=== PATIENT | female | born 2005 | race Caucasian/White ===

== ENCOUNTER 2023-02-09 22:22 | Emergency (ER) | payer OTHER ==
[~2023-02-09] VITALS: Ht 162.6 cm; Wt 95.0 kg
[~2023-02-09 22:22] MED LIST: CEPHALEXIN500 M1 PO; CITALOPRAM HBR10 MG PO; FERROUS SULFAT325 MG PO; OMEPRAZOLE20 MG PO
[2023-02-09] MEDS ORDERED: AMOX TR-K CLV1 EAC1 PO (22:34)
[2023-02-09] MEDS ORDERED: M-NATAL PLUS T1 EACH PO (22:34)
[2023-02-09] MEDS ORDERED: FLUTICASONE PRO16 GM NAS (22:34)
[2023-02-09] MEDS ORDERED: PERMETHRIN60 GM TOP (22:46)
[2023-02-09 23:02] VITALS: BP 121/76
== END 2023-02-09 23:04 | disposition home or self-care (01) ==
LOC: ED 22:22
DX: O98.811 Other maternal infectious and parasitic diseases complicating pregnancy, first trimester (principal); B86 Scabies; Z3A.11 11 weeks gestation of pregnancy
CPT/HCPCS: 99282

== ENCOUNTER 2023-03-06 20:25 | Emergency (ER) | payer OTHER ==
[~2023-03-06] VITALS: Ht 162.6 cm; Wt 93.0 kg
[~2023-03-06 20:25] MED LIST changes: +AMOX TR-K CLV1 EAC1 PO; +FLUTICASONE PRO16 GM NAS; +M-NATAL PLUS T1 EACH PO; +PERMETHRIN60 GM TOP
--- OUTSIDE RECORDS SUMMARY | 2023-03-06 20:33 | XMS ---
PreManage Notification: BELKIS MARTINEZ Security Per Diem Physical Therapist Assistant Events No recent Security Events currently on file CRITERIA MET - [facility] - 2 Visits in 30 Days CARE PROVIDERS ZULLY SOLOMON [facility] Current PHONE: Unknown Olivier has no Care Guidelines for this patient. E.Hayden VISIT COUNT (12 MO.) 4 [facility] TOTAL 4 NOTE: Visits indicate total known visits. ED/UCC VISIT TRACKING (12 MO.) 03/06/2023 20:26 [facility] TYPE: Emergency COMPLAINT: - BACK INJURY 02/09/2023 22:22 [facility] TYPE: Emergency COMPLAINT: - MEDICATION REACTION/ 11 WEEKS PREG DIAGNOSES: - 11 weeks gestation of - Other maternal infectious and parasitic diseases complicating , first trimester - Rash and other nonspecific skin eruption - Scabies 12/24/2022 07:59 [facility] TYPE: Emergency COMPLAINT: - ABDOMINAL PAIN DIAGNOSES: - Encounter for test, result positive 11/26/2022 04:[address] [facility] TYPE: Emergency COMPLAINT: - ARM PAIN AND VAGINAL BLEEDING DIAGNOSES: - Abnormal uterine and vaginal bleeding, unspecified - Cellulitis of left upper limb - Irregular menstruation, unspecified INPATIENT VISIT TRACKING (12 MO.) No inpatient visits to display in this time frame [email or web address]
[2023-03-06 23:18] LABS: BILIRUBIN, URINE NEGATIVE (negative); BLOOD/HGB, URINE NEGATIVE (Negative); KETONE, URINE SMALL (Negative); LEUK ESTERASE, URINE NEGATIVE (negative); NITRITE, URINE NEGATIVE (negative)
[2023-03-06 23:23] LABS: EPITHELIAL CELLS, URINE SQUAMOUS 3+ /lpf (0-1+); RED BLOOD CELLS, URINE 0-1 /hpf (0-5); WHITE BLOOD CELLS, URINE 0-1 /HPF (0-5)
[2023-03-06 23:24] LABS: BACTERIA, URINE RARE /hpf (negative); CASTS, URINE NONE SEEN \\lpf; CRYSTALS, URINE AMORPHOUS URATES 2+ (0-1+); REFLEX CULTURE, URINE No (No)
[2023-03-07] MEDS ORDERED: CYCLOBENZAPRINE10 MG PO (00:10)
[2023-03-07 00:20] VITALS: BP 135/75
== END 2023-03-07 00:20 | disposition home or self-care (01) ==
LOC: ED 20:25
PROVIDERS: Family Medicine
DX: O9A.212 Injury, poisoning and certain other consequences of external causes complicating pregnancy, second trimester (principal); S39.012A Strain of muscle, fascia and tendon of lower back, initial encounter; X50.1XXA Overexertion from prolonged static or awkward postures, initial encounter; X50.0XXA Overexertion from strenuous movement or load, initial encounter; Z3A.15 15 weeks gestation of pregnancy; Z79.899 Other long term (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
CPT/HCPCS: 76815; 81001; 84703

== ENCOUNTER 2023-10-02 06:13 | Emergency (ER) | payer OTHER ==
[~2023-10-02] VITALS: Ht 152.4 cm; Wt 92.0 kg
[~2023-10-02 06:13] MED LIST changes: +CYCLOBENZAPRINE10 MG PO
[2023-10-02] MEDS ORDERED: KETOROLAC TROMETHAMINE 30 MG/ML VIAL IM ONE (08:00)
[2023-10-02] MEDS ORDERED: HYDROCODON-ACE1 EA10 PO (08:40)
[2023-10-02 08:46] VITALS: BP 122/83
== END 2023-10-02 08:46 | disposition home or self-care (01) ==
LOC: ED 06:13
DX: S39.012A Strain of muscle, fascia and tendon of lower back, initial encounter (principal); X58.XXXA Exposure to other specified factors, initial encounter; Z87.891 Personal history of nicotine dependence; Z79.899 Other long term (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
CPT/HCPCS: 72100; J1885

== ENCOUNTER 2023-10-12 02:56 | Emergency (ER) | payer OTHER ==
[~2023-10-12] VITALS: Ht 162.6 cm; Wt 96.4 kg
[~2023-10-12 02:56] MED LIST changes: +HYDROCODON-ACE1 EA10 PO
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
[2023-10-12] MEDS ORDERED: HYDROCODON-ACE1 EA10 PO (03:28)
[2023-10-12] MEDS ORDERED: DEXAMETHASONE SOD PHOS 10 MG/ML VIAL IM ONE (04:00)
[2023-10-12 04:50] VITALS: BP 106/61
== END 2023-10-12 04:53 | disposition home or self-care (01) ==
LOC: ED 02:56
DX: M75.51 Bursitis of right shoulder (principal); Z88.0 Allergy status to penicillin; Z87.891 Personal history of nicotine dependence
CPT/HCPCS: 20552; 99283-25; J1100

== ENCOUNTER 2023-11-12 04:03 | Emergency (ER) | payer OTHER ==
[~2023-11-12] VITALS: Ht 162.6 cm; Wt 98.0 kg
[2023-11-12] MEDS ORDERED: MELOXICAM15 MG (04:14)
[2023-11-12] MEDS ORDERED: SERTRALINE HCL50 MG (04:14)
[2023-11-12] MEDS ORDERED: diazePAM 10 MG/2 ML SYR IM ONE (04:15)
[2023-11-12] MEDS ORDERED: KETOROLAC TROMETHAMINE 60 MG/2 ML VIAL IM ONE (04:15)
[2023-11-12] MEDS ORDERED: ONDANSETRON 4 MG TAB ODT SL ONE (04:15)
[2023-11-12] MEDS ORDERED: CYCLOBENZAPRINE HCL 10 MG HOME.PACK PO ONE (05:00)
[2023-11-12] MEDS ORDERED: ONDANSETRON 4 MG HOME.PACK SL ONE (05:00)
[2023-11-12] MEDS ORDERED: methylPREDNISolone 4 MG HOME.PACK PO ONE (05:00)
[2023-11-12 05:26] VITALS: BP 125/68
== END 2023-11-12 05:28 | disposition home or self-care (01) ==
LOC: ED 04:03
DX: S43.401A Unspecified sprain of right shoulder joint, initial encounter (principal); S23.3XXA Sprain of ligaments of thoracic spine, initial encounter; X58.XXXA Exposure to other specified factors, initial encounter; Z87.891 Personal history of nicotine dependence; Z88.0 Allergy status to penicillin; Z79.899 Other long term (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
CPT/HCPCS: 72070; 73030; A9270; J1885; J3360

== ENCOUNTER 2023-11-14 12:17 | Inpatient (IN) | payer OTHER ==
[~2023-11-14] VITALS: Ht 162.6 cm; Wt 96.0 kg
[~2023-11-14 12:17] MED LIST changes: +MELOXICAM15 MG; +SERTRALINE HCL50 MG PO
[2023-11-14] MEDS ORDERED: ondansetron HCL 4 MG/2 ML VIAL IV ONE (12:30)
[2023-11-14 12:43] LABS: BASOPHILS 0.1 % (0-2); EOSINOPHILS 0.6 % (0-6); HEMATOCRIT 40.9 % (35.0-50.0); HEMOGLOBIN 13.1 g/dL (12.0-18.0); LYMPHOCYTES 8.2 % (24-44); MCHC 32.1 g/dl (30-36); MCV 83.9 fl (81-99); MONOCYTES 5.1 % (0-12); PLATELET COUNT 322 K/uL (140-440); RBC 4.87 M/ul (4.3-5.7); RDW 15.3 (10.5-15.0)
--- OUTSIDE RECORDS SUMMARY | 2023-11-14 12:46 | XMS ---
PreManage Notification: BELKIS MARTINEZ Security Fruit Packer Events No recent Security Events currently on file CRITERIA MET - [facility] - 2 Visits in 30 Days CARE PROVIDERS [facility] Clinic/Center: [facility] Current \F\ [facility] PHONE: [phone] ZULLY SOLOMON [facility] Current PHONE: Unknown Olivier has no Care Guidelines for this patient. EDipti VISIT COUNT ([address] TOTAL 9 NOTE: Visits indicate total known visits. ED/UCC VISIT TRACKING (12 MO.) 11/14/2023 12:17 [facility] TYPE: Emergency COMPLAINT: - FLANK PAIN,VOMITING 11/12/2023 04:04 [facility] TYPE: Emergency COMPLAINT: - RT SHOULDER PAIN DIAGNOSES: - Allergy status to penicillin - Exposure to other specified factors, initial encounter - Other penitentiary (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 - Pain in right shoulder - Personal history of nicotine dependence - Sprain of ligaments of thoracic spine, initial encounter - Unspecified sprain of right shoulder joint, initial encounter 10/12/2023 02:56 [facility] TYPE: Emergency COMPLAINT: - BACK PAIN DIAGNOSES: - Allergy status to penicillin - Bursitis of right shoulder - Pain in thoracic spine - Personal history of nicotine dependence 10/02/2023 06:13 [facility] TYPE: Emergency COMPLAINT: - BACK PAIN DIAGNOSES: - Exposure to other specified factors, initial encounter - Low back pain, unspecified - Other parts counterman (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 - Personal history of [...] causes complicating , second trimester - Other parts counterman (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 - Overexertion from prolonged [...] MO.) 08/17/2023 12:03 [facility] [place] TYPE: [facility] COMPLAINT: - LABOR DIAGNOSES: - 38 weeks [...] childbirth - Unspecified maternal hypertension, complicating childbirth [email or web address]
[2023-11-14 12:59] LABS: ALBUMIN 3.7 g/dL (3.4-5.0); ALBUMIN/GLOBULIN RATIO 0.86 (1.1-2.4); ALKALINE PHOSPHATASE 278 U/L (46-116); ALT (SGPT) 431 U/L (14-59); ANION GAP 18.6 (7-21); AST (SGOT) 181 U/L (15-37); BILIRUBIN, TOTAL 4.9 ng/dL (0.2-1.0); BUN/CREATININE RATIO 9.89 (6.0-28.6); CALCIUM 9.5 mg/dL (8.5-10.1); CARBON DIOXIDE 22 mmol/L (21-32); CHLORIDE 101 mmol/L (98-107); CREATININE, SERUM 0.91 mg/dL (0.55-1.02); GLOMERULAR FILTRATION RATE,EST 93 mL/min (>60); POTASSIUM 3.6 mmol/L (3.5-5.1); UREA NITROGEN 9 mg/dL (7-18)
[2023-11-14] MEDS ORDERED: SODIUM CHLORIDE 0.9% 1,000 ML IV ONE (13:00)
[2023-11-14] MEDS ORDERED: KETOROLAC TROMETHAMINE 30 MG/ML VIAL IV ONE (13:00)
[2023-11-14 13:28] LABS: BILIRUBIN, URINE POSITIVE (negative); BLOOD/HGB, URINE NEGATIVE (Negative); KETONE, URINE SMALL (Negative); LEUK ESTERASE, URINE NEGATIVE (negative); NITRITE, URINE NEGATIVE (negative); PH, URINE 5.5 (5-7)
[2023-11-14 13:38] LABS: BACTERIA, URINE NONE SEEN /hpf (negative); CASTS, URINE NONE SEEN \\lpf; COLLECTION TYPE, URINE CLEAN CATCH; CRYSTALS, URINE NONE SEEN (0-1+); EPITHELIAL CELLS, URINE SQUAMOUS 2+ /lpf (0-1+); RED BLOOD CELLS, URINE 0-1 /hpf (0-5); REFLEX CULTURE, URINE No (No)
[2023-11-14] MEDS ORDERED: CEFAZOLIN SODIUM 2 GM/20 ML SYR IV ONE (14:30)
[2023-11-14] MEDS ORDERED: FAMOTIDINE 20 MG/ 2 ML VIAL IV ONE (14:30)
[2023-11-14] MEDS ORDERED: LACTATED RINGER'S 1,000 ML IV SCH ×3 (14:30→19:30)
--- NOTE | 2023-11-14 15:26 | NUR ---
PT TO [facility] VIA STRETCHER IS ABLE TO SELF TRANSFER TO THE BED. PT SITTING UP HOLDING HER BABY AT THIS TIME. ALERT AND COOPERATIVE AGREES SHE IS COMFORTABLE AT THIS TIME. ORIENTED TO CALL LIGHT AND BED CONTROLS. REMAINS NPO. FAMILY X3 PRESENT NOW
[2023-11-14 15:30] VITALS: BP 128/72
[2023-11-14] MEDS ORDERED: ondansetron HCL 4 MG/2 ML VIAL IV PRN ×2 (15:30→19:30)
[2023-11-14] MEDS ORDERED: HYDROmorphone HCL 1 MG/ML SYR IV PRN (15:30)
[2023-11-14] MEDS ORDERED: MELOXICAM15 MG PO (17:30)
[2023-11-14] MEDS ORDERED: ONDANSETRON ODT4 MG PO (17:30)
--- NOTE | 2023-11-14 17:30 | NUR ---
PT RESTING IN BED STATES HER ABDOMEN IS STARTING TO HURT, MEDICATED FOR PAIN. SHE DENIES OTHER NEEDS AT THIS TIME. MESSAGE LEFT FOR DR MONTERO ASKING IF PT CAN EAT AND DRINK UNTIL 2400
--- NOTE | 2023-11-14 17:31 | NUR ---
MED REC COMPLETE
[2023-11-14 18:03] VITALS: BP 126/72
[2023-11-14] MEDS ORDERED: MORPHINE SULFATE 10 MG/ML VIAL IV PRN (19:30)
--- NOTE | 2023-11-14 19:32 | NUR ---
REPORT RECIEVED FROM DAY SHIFT RN. PATIENT RESITNG IN BED ON BACK TALKING ON PHONE. PATIENT DENIES NEEDS AT THIS TIME. CALL LIGHT IN REACH.
[2023-11-14 19:54] VITALS: BP 103/63
--- NOTE | 2023-11-14 19:54 | NUR ---
PATIENT RESTING IN BED. VS AND I&Os OBTAINED AND RECORDED. PATIENT DENIES PAIN AT THIS TIME. PATIENT EDUCATED TO CALL IF SHE HAS ANY NEEDS. CALL LIGHT IN REACH.
[2023-11-14 20:57] VITALS: BP 117/65
[2023-11-14] MEDS ORDERED: KETOROLAC TROMETHAMINE 30 MG/ML VIAL IV PRN (21:00)
[2023-11-14] MEDS ORDERED: HEParin SOD (PORCINE) 5,000 UNIT/0.5 ML SYR SUB-Q SCH (21:00)
[2023-11-14] MEDS ORDERED: FAMOTIDINE 20 MG/ 2 ML VIAL IV SCH (21:00)
--- NOTE | 2023-11-14 21:30 | NUR ---
PATIENT RESTING IN BED ON PHONE. SCHEDULED MEDICATION ADMINISTERED. PATIENT DENIES PAIN OR NEEDS AT THIS TIME. CALL LIGHT IN REACH.
[2023-11-14] MEDS ORDERED: CEFAZOLIN SODIUM 2 GM/20 ML SYR IV SCH (22:00)
--- NOTE | 2023-11-14 22:35 | NUR ---
PATIENT RESTING IN BED WATCHING HER PHONE. SCHEDULED ABX ADMINISTERED PER ORDER. FRESH WATER PROVIDED. NO FURTHER NEEDS. CALL LIGHT IN REACH.
[2023-11-15] VITALS (9 sets, daily range): BP systolic 104–134; BP diastolic 49–80
--- NOTE | 2023-11-15 00:17 | NUR ---
PATIENT RESTING IN BED ON BACK WITH EYES CLOSED. RESPIRATIONS EVEN AND UNLABORED. SCDs IN PLACE. CALL LIGHT IN REACH.
--- NOTE | 2023-11-15 02:12 | NUR ---
PATIENT RESTING IN BED ON BACK WITH EYES CLOSED. RESPIRATONS EVEN AND UNLABORED. CALL LIGHT IN REACH.
--- NOTE | 2023-11-15 04:16 | NUR ---
CALL LIGHT ANSWERED. PATIENT UP TO BATHROOM INDEPENDENTLY TO VOID. PATIENT BACK TO BED. PATIENT REPORTS 8/10 ABD PAIN. PRN PAIN MEDICATION ADMINISTERED PER PATIENT REQUEST. NEW BAG IV FLUID INFUSING PER ORDER. VS AND I&Os OBTAINED AND RECORDED. SCDs IN PLACE. PATIENT HAS NO FURTHER NEEDS. CALL LIGHT IN REACH.
[2023-11-15 05:32] LABS: HEMOGLOBIN 12.6 g/dL (12.0-18.0); MCHC 32.2 g/dl (30-36)
[2023-11-15 05:34] LABS: BASOPHILS 0.8 % (0-2); EOSINOPHILS 1.7 % (0-6); HEMATOCRIT 39.1 % (35.0-50.0); LYMPHOCYTES 20.1 % (24-44); MCH 27.1 (27-36); MCV 84.3 fl (81-99); MONOCYTES 6.2 % (0-12); NEUTROPHILS 71.2 % (39-80); PLATELET COUNT 280 K/uL (140-440); RBC 4.64 M/ul (4.3-5.7); RDW 15.7 (10.5-15.0)
[2023-11-15 05:46] LABS: ALBUMIN 3.2 g/dL (3.4-5.0); ALBUMIN/GLOBULIN RATIO 0.74 (1.1-2.4); ALKALINE PHOSPHATASE 234 U/L (46-116); ALT (SGPT) 297 U/L (14-59); ANION GAP 15.5 (7-21); AST (SGOT) 103 U/L (15-37); BILIRUBIN, TOTAL 1.8 ng/dL (0.2-1.0); CALCIUM 9.2 mg/dL (8.5-10.1); CARBON DIOXIDE 24 mmol/L (21-32); CHLORIDE 102 mmol/L (98-107); GLOMERULAR FILTRATION RATE,EST 108 mL/min (>60); POTASSIUM 3.5 mmol/L (3.5-5.1); PROTEIN, TOTAL 7.5 g/dL (6.4-8.2); UREA NITROGEN 8 mg/dL (7-18)
--- NOTE | 2023-11-15 06:07 | NUR ---
SCHEDULED ABX ADMINISTERED PER ORDER. NO FURTHER NEEDS. CALL LIGHT IN REACH.
--- NOTE | 2023-11-15 07:15 | NUR ---
RECEIVED REPORT FROM DINORAH LOUIS. PT RESTING IN BED WITH EYES CLOSED, BREATHING EVEN AND UNLABORED, CALL LIGHT WITHIN REACH.
--- NOTE | 2023-11-15 08:22 | NUR ---
UR CLINICAL REVIEW: [facility], MEETS INPT FOR PACREATITIS WITH COMMON DUCT STONE CRITERIA EOCCO INPT 11/14/23 @1450 ORDER MATCHES STATUS AUTH PENDING CLINICAL REVIEW CLINICALS SENT VIA [employer] THIS MORNING. PLAN TO DC TO HOME WHEN STABLE 11/17/23
--- NOTE | 2023-11-15 09:25 | NUR ---
PT LYING IN BED AWAKE, A+O X4. PT STATES PAIN IS 8/10 IN THE RUQ, PAIN MEDICATION REQUESTED, PRN PAIN MEDICATION GIVEN. PT STATES SHE IS FEELING NAUSEAS THIS MORNING, PRN ZOFRAN GIVEN PER PT REQUEST. SCDs IN PLACE. ABDOMEN SOFT, TENDER TO PALPATION ESPECIALLY TO THE R SIDE. BOWEL TONES ACTIVE. PT STATES NO FURTHER NEEDS AT THIS TIME, CALL LIGHT WITHIN REACH.
--- NOTE | 2023-11-15 09:53 | NUR ---
VISITED DURING SPIRITUAL CARE ROUNDS. PT APPEARED TO BE IN GOOD SPIRITS; NO SIGNS OF ANXIETY OR DISCOMFORT PRESENT. DRAINLAYER PROVIDED SUPPORTIVE PRESENCE HOSPITALITY, PRAYER. PT EXPRESSED GRATITUDE.
--- NOTE | 2023-11-15 10:01 | NUR ---
LIVES AT HOME. PLANS TO RETURN AT [place]. DENIES DME. ALSO DENIES ANY NEEDS FROM CASE MANAGEMENT AT THIS TIME.
--- NOTE | 2023-11-15 10:15 | NUR ---
PT STATES PAIN HAS DECREASED TO 5/10, STATES NO NEED FOR FURTHER PAIN MANAGEMENT AT THIS TIME. PT DENIES ANY CURRENT NEEDS. CALL LIGHT WITHIN REACH.
--- NOTE | 2023-11-15 11:05 | HP ---
[facility] [address], [place] [address] Signed ADMISSION DATE: 11/14/2023 REASON FOR ADMISSION: Acute gallstone pancreatitis. HISTORY OF PRESENT ILLNESS: This 18-year-old woman presented to the emergency room today and was evaluated by Dr. Katz with severe epigastric and interscapular pain. She had been seen recently for pain in the shoulder and upper back with a negative shoulder x-ray. She has a 3-month-old baby (her 1st) no longer , but nevertheless presentation in the emergency room. The patient has had episodic back and shoulder pain for several weeks and indeed, she has not been able to eat very well in recent times. Evaluation by Dr. Katz included lab studies, which showed a markedly elevated lipase greater than 375. Liver enzyme elevation including alkaline phosphatase of 278, ALT 431, elevated bilirubin of 4.9. White count was 12.9, hematocrit normal at 40.9, and platelets normal at 322,000. Her creatinine was normal at 0.91. A gallbladder ultrasound was performed, which showed gallstones and moderate distention of the common bile duct and hepatic steatosis. The patient's clinical appearance is discordant to her symptoms to a degree. She appears to be tolerating the discomfort surprisingly well actually. PAST MEDICAL HISTORY: Remarkable predominantly for childbirth as described. She has never had abdominal surgery. She denies smoking currently, though she has smoked in the past. She denies any drug use and no prior operations. ALLERGIES: She has allergies to amoxicillin, Betadine causing swelling and shellfish allergy. MEDICATIONS: At home include cyclobenzaprine (Flexeril). She has been on sertraline in the past. SOCIAL HISTORY: She is due to get in a iwvd-lca-j-half (Monday). She does have her son who is her 1st child. REVIEW OF SYSTEMS: She denies any nausea or vomiting at this time. Her pain is mostly epigastric and interscapular and some in the right subcostal area. She has had no hematemesis or blood per rectum, though she has felt somewhat nauseated previously. Electronically Signed By: LUCINDA MONTERO MD 11/15/23 1105 PATIENT NAME: BELKIS MARTINEZ HISTORY AND PHYSICAL DATE OF : [birth year] REPORT #: [id number] PHYSICIAN: LUCINDA MONTERO MD PCP: DEV ANGELES (HARISH) DO REPORT IS CONFIDENTIAL AND NOT TO BE RELEASED WITHOUT AUTHORIZATION [facility] [address], [place] [address] Signed PHYSICAL EXAMINATION: GENERAL: Pleasant woman with no sign of systemic toxicity. Height is 5 feet 4 inches, weight is 96 kg, BMI is 36.3. HEENT: Trachea is midline. Mucous membranes are slightly moist. CHEST: Clear. HEART: Regular without murmur. ABDOMEN: Quite obese. Palpation reveals significant tenderness in the epigastric and right subcostal area. She has no ascites. EXTREMITIES: Show no clubbing, cyanosis, or edema. ASSESSMENT: Her findings are consistent with gallstone pancreatitis. I have reviewed the ultrasound and so we confirming multiple gallstones. The fact she has a somewhat elevated bilirubin as well as some biliary ductal dilatation implies obstruction at the ampulla related to related stone or more likely or as possible edema. I discussed with her the pathophysiology of gallstone pancreatitis in great detail. Antibiotics have been administered. IV fluids undertaken and she will be allowed clear liquids for comfort, though no food otherwise. The standard to be applied in her case would be allow for clinical improvement and resolution of the gallstone pancreatitis allowing for a cholecystectomy before discharge. She may require a common duct exploration as well, either laparoscopic or otherwise. The advisability of an MRCP at this time is uncertain. We will see what her studies show tomorrow and her clinical course. Lucinda Montero MD /MODL /[id number] cc: Man Katz MD Electronically Signed By: LUCINDA MONTERO MD 11/15/23 1105 PATIENT NAME: BELKIS MARTINEZ HISTORY AND PHYSICAL DATE OF : 03 REPORT #: [id number] PHYSICIAN: LUCINDA MONTERO MD PCP: DEV ANGELES (HARISH) DO REPORT IS CONFIDENTIAL AND NOT TO BE RELEASED WITHOUT AUTHORIZATION [facility] [address], [place] [address] Signed Dev Angeles DO Copies: MAN KATZ MD, JAMES (JD) DO ~ Electronically Signed By: LUCINDA MONTERO MD 11/15/23 1105 PATIENT NAME: BELKIS MARTINEZ HISTORY AND PHYSICAL DATE OF : [birth year] REPORT #: [id number] PHYSICIAN: LUCINDA MONTERO MD PCP: DEV ANGELES) REPORT IS CONFIDENTIAL AND NOT TO BE RELEASED WITHOUT AUTHORIZATION
--- NOTE | 2023-11-15 11:25 | NUR ---
PT USES CALL LIGHT, THIS RN TO BEDSIDE. PT REQUESTS CLEAR LIQUID SNACK, GIVEN. PT STATES NO FURTHER NEEDS AT THIS TIME, CALL LIGHT WITHIN REACH.
--- NOTE | 2023-11-15 11:40 | NUR ---
PT UP TO RESTROOM INDEPENDENTLY. PT REQUESTS NEW GOWN, GIVEN. CALL LIGHT WITHIN REACH.
--- NOTE | 2023-11-15 12:11 | NUR ---
PT UP TO CHAIR COLORING, PT STATES PAIN IS 8/10 IN RUQ, PRN PAIN MEDICATION GIVEN PER PT REQUEST. PT STATES NO FURTHER NEEDS AT THIS TIME, CALL LIGHT WITHIN REACH.
--- NOTE | 2023-11-15 13:10 | NUR ---
PT UP TO CHAIR COLORING AND WATCHING TV. PT STATES PAIN IS "GOING DOWN" AND IS CURRENTLY 10/10. PT STATES NO NEEDS AT THIS TIME, CALL LIGHT WITHIN REACH.
--- NOTE | 2023-11-15 14:35 | NUR ---
PT UP TO CHAIR FEEDING SONJORY AT THE BEDSIDE. PT STATES NO NEEDS AT THIS TIME, CALL LIGHT WITHIN REACH.
--- NOTE | 2023-11-15 14:45 | NUR ---
PT STATES SHE IS FEELING NAUSEAS, ZOFRAN GIVEN PER PT REQUEST. PT STATES NO FURTHER NEEDS AT THIS TIME, CALL LIGHT WITHIN REACH.
--- NOTE | 2023-11-15 18:03 | NUR ---
PT DINNER TRAY SET UP, PT STATES NO FURTHER NEEDS AT THIS TIME, CALL LIGHT WITHIN REACH.
--- NOTE | 2023-11-15 19:25 | NUR ---
REPORT RECEIVED FROM DINORAH ANGEL, ASSUMED CARE OF pt.
--- NOTE | 2023-11-15 20:30 | NUR ---
CALL LIGHT ANSWERED. pt C/O NAUSEA. PRN MEDICATION ADMINISTERED. SBA TO RESTROOM FOR VOID AND BACK TO BED. PRN PAIN MEDICATION ADMINISTERED FOR 7-8/10 REPORTED RUQ PAIN. ASSESSMENT COMPLETE. pt GUARDED WITH PALPATION IN ABDOMEN, SHALLOW BREATHING, IS PROVIDED AND DEMONSTRATED X 2. EDUCATION PROVIDED. IVF INFUSING WNL. CALL LIGHT AND PERSONAL SUPPLIES IN REACH. pt ENCOURAGED TO SLOW DOWN ON CLEAR LIQUID INTAKE, FOR COMFORT AT THIS TIME. NO EMESIS. VERBALIZES UNDERSTANDING.
--- NOTE | 2023-11-15 22:07 | NUR ---
pt RESTING IN BED AWAKE, COLORING. DENIES PAIN. STATES "I JUST FEEL GASSY". SCHEDULED ANTIBIOTIC ADMINSITERED WNL. CALL LIGHT IN REACH. pt DENIES NEEDS.
[2023-11-16] VITALS (7 sets, daily range): BP systolic 114–142; BP diastolic 58–83
--- NOTE | 2023-11-16 00:03 | NUR ---
CALL LIGHT ANSWERED. pt COMPLAINS OF 8.5/10 PAIN IN ABDOMEN. pt DROWSY, RESTING IN BED. PRN MEDICATION ADMINISTERED. pt NPO AT THIS TIME. EDUCATION PROVIDED. CALL LIGHT IN REACH.
--- NOTE | 2023-11-16 00:45 | NUR ---
CALL LIGHT ANSWERED. OCCLUSION IN IV LINE, IVF INFUSING WNL. pt REQUESTING TO SLEEP, NO ADDITIONAL NEEDS. CALL LIGHT IN REACH. LIGHTS OFF IN ROOM.
--- NOTE | 2023-11-16 03:00 | NUR ---
pt RESTING IN BED WITH EYES CLOSED, BREATHING UNLABORED. LIGHTS OFF IN ROOM. NO DISTRESS NOTED.
[2023-11-16 05:51] LABS: HEMOGLOBIN 11.8 g/dL (12.0-18.0); MCHC 32.3 g/dl (30-36); MCV 84.7 fl (81-99)
--- NOTE | 2023-11-16 05:52 | NUR ---
CALL LIGHT ANSWERED. SBA TO RESTROOM FOR VOID AND BACK TO BED. LABS DRAWN BY TECHS. VS COMPLETE. ABD ASSESSMENT COMPLETE. pt DENIES PAIN. DENIES NAUSEA. IVF INFUSING WNL. CALL LIGHT IN REACH.
[2023-11-16 05:53] LABS: BASOPHILS 0.9 % (0-2); HEMATOCRIT 36.4 % (35.0-50.0); LYMPHOCYTES 35.5 % (24-44); MCH 27.3 (27-36); MONOCYTES 4.8 % (0-12); NEUTROPHILS 56.8 % (39-80); PLATELET COUNT 284 K/uL (140-440); RDW 15.4 (10.5-15.0)
[2023-11-16 06:06] LABS: ALKALINE PHOSPHATASE 191 U/L (46-116); ALT (SGPT) 184 U/L (14-59); ANION GAP 13.5 (7-21); AST (SGOT) 58 U/L (15-37); BUN/CREATININE RATIO 6.17 (6.0-28.6); CARBON DIOXIDE 27 mmol/L (21-32); CHLORIDE 103 mmol/L (98-107); CREATININE, SERUM 0.81 mg/dL (0.55-1.02); GLOMERULAR FILTRATION RATE,EST 107 mL/min (>60); POTASSIUM 3.5 mmol/L (3.5-5.1); PROTEIN, TOTAL 7.3 g/dL (6.4-8.2); UREA NITROGEN 5 mg/dL (7-18)
--- NOTE | 2023-11-16 06:38 | NUR ---
CALL LIGHT ANSWERED. pt COMPLAINS OF 7/10 ABDOMINAL PAIN AT THIS TIME. PRN TORADOL ADMINISTERED. IVF INFUSING WNL. pt DENIES ADDITIONAL NEEDS.
--- NOTE | 2023-11-16 07:15 | NUR ---
RECEIVED REPORT FROM DINORAH GARCIA. PT AWAKE IN BED, STATES SHE WOULD LIKE TO SHOWER THIS MORNING, SHOWER SUPPLIES PROVIDED. PT ON PHONE, STATES SHE WILL CALL WHEN READY TO SHOWER. PT STATES NO FURTHER NEEDS AT THIS TIME, CALL LIGHT WITHIN REACH.
--- NOTE | 2023-11-16 07:35 | NUR ---
PT LYING IN BED AWAKE, STATES SHE WOULD LIKE TO SHOWER NOW, IV SALINE LOCKED AND SITE WRAPPED FOR SHOWER. PT STATES PAIN IN RUQ IS 5/10 CURRENTLY, DENIES NEEDS FOR PAIN CONTROL MEASURES AT THIS TIME. PT DOES NOT HAVE SCDs ON CURRENTLY D/T BEING UP IN ROOM. PT REMAINS NPO SINCE MIDNIGHT. PT STATES NO FURTHER NEEDS AT THIS TIME, CALL LIGHT WITHIN REACH.
--- NOTE | 2023-11-16 09:10 | NUR ---
VISITED DURING SPIRITUAL CARE ROUNDS. PT IN OVERALL GOOD SPIRITS, EXPRESSED HOPEFUL ANTICIPATION FOR PROCEDURE. DRAFTER CIVIL ENGINEERING PROVIDED ANXIETY CONTAINMENT, HOSPITALITY, PRAYER. PT EXPRESSED GRATITUDE, HOPE.
--- NOTE | 2023-11-16 11:11 | NUR ---
AFTER I DID PATIENT'S VITALS SHE STARTED TO FALL ASLEEP.
--- NOTE | 2023-11-16 11:55 | NUR ---
PT UP TO RESTROOM INDEPENDENTLY, STATES NO FURTHER NEEDS AT THIS TIME. CALL LIGHT WITHIN REACH.
--- NOTE | 2023-11-16 12:30 | NUR ---
PT USES CALL LIGHT D/T IV PUMP ALARMING, REQUESTS A WARM BLANKET WELL, GIVEN, IV PUMP RESOLVED. PT STATES NO FURTHER NEEDS AT THIS TIME. CALL LIGHT WITHIN REACH.
--- NOTE | 2023-11-16 13:20 | NUR ---
Spoke with pt. She denies needs. I will bring her a Cross Word Puzzle book. Pt states she is feeling better today.
--- NOTE | 2023-11-16 14:03 | NUR ---
PT REQUESTS PAIN MEDICATION AND ZOFRAN FOR 7/10 ABDOMINAL PAIN AND NAUSEA, GIVEN. PT STATES NO FURTHER NEEDS AT THIS TIME, CALL LIGHT WITHIN REACH.
--- NOTE | 2023-11-16 15:42 | NUR ---
PT REQUESTS MEGHAN HOLDEN. PT STATES PAIN IS FEELING "BETTER" AT 5/10 AND DENIES NAUSEA AT THIS TIME. PT STATES NO FURTHER NEEDS CURRENTLY, CALL LIGHT WITHIN REACH.
--- NOTE | 2023-11-16 16:58 | NUR ---
PT REQUESTS PRN PAIN MEDICATION FOR 8/10 PAIN IN CENTER OF BACK AND IN ABDOMEN, PRN PAIN MEDICATION GIVEN. PT STATES NO FURTHER NEEDS AT THIS TIME, CALL LIGHT WITHIN REACH.
--- NOTE | 2023-11-16 18:35 | NUR ---
PATIENT IN BED AT THIS TIME. CALL LIGHT WITHIN REACH, NO FURTHER NEEDS AT THIS TIME.
--- NOTE | 2023-11-16 19:20 | NUR ---
shift report received from dayshift willow pedro at bedside, pt awake and resting in bed. on ra, rr even and unlabored. pt reports pain is tolerable at this time, did not rate pain on pain scale. iv site wnl, fluids infusing as directed wnl. no needs or concerns verbalized. call light in reach and board updated.
--- NOTE | 2023-11-16 20:15 | NUR ---
THIRD SHIFT LIEUTENANT OBTAINED VITALS AND I&O. PT STATES NO FURTHER NEEDS AT THIS TIME. CALL LIGHT WITHIN REACH.
--- NOTE | 2023-11-16 20:37 | NUR ---
CALL LIGHT ANSWERED, pt ASKING FOR PRN PAIN MEDICATION-REPORTS 7.5/10 PAIN IN ABD. pt OFFERED PRN MORPHINE, pT DECLINED, STATING, "IT MAKES ME FEEL FUNNY. I'LL JUST WAIT FOR THE OTHER". pt REFERRING TO TORADOL. ASSESSMENT COMPLETE. SCHEDULED EVENIGN MEDS GIVEN-SEE EMAR. IV SITE WNL, BRISK BLOOD RETURN NOTED. FIANCE IN ROOM AND pt INTERACTIVE WITH FIANCE AND CONVERSING WITH STAFF. VS AND I&O'S COLLECTED BY BANKRUPTCY LEGAL ASSISTANT. CALL LIGHT IN REACH.
--- NOTE | 2023-11-16 21:47 | NUR ---
SCHEDULED ANCEF AND PRN TORADOL GIVEN-SEE EMAR. IV SITE WNL. TIOLET HAT EMPTIED, CALL LIGHT IN REACH.
--- NOTE | 2023-11-16 22:13 | NUR ---
CALL LIGHT ANSWERED. PT NEEDED HELP UNPLUGGING IV PUMP FOR THE BATHROOM. MARINE DRAFTER ASSISTED PT WITH IV POLE. PT INDEPENDENTLY USED BATHROOM. OUTPUT NOTED. PT BACK IN BED AND STATES NO FURTHER NEEDS AT THIS TIME. CALL LIGHT WITHIN REACH.
--- NOTE | 2023-11-16 23:00 | NUR ---
ROUNDED ON pt, pt AWAKE AND RESTING IN BED WITH MOTHER IN ROOM. DENIES NEEDS OR CONCERNS. CALL LIGHT IN REACH. IV SITE WNL, FLUIDS INFUSING DIRECTED.
--- NOTE | 2023-11-17 | NUR ---
PRECISION AGRICULTURE TECHNICIAN WENT INTO ROOM AND REMOVED ALL PT CUPS AND INFORMED PT THAT SHE WAS NOW NPO. PT STATES NO FURTHER NEEDS AT THIS TIME. CALL LIGHT WITHIN REACH.
--- NOTE | 2023-11-17 00:05 | NUR ---
pt NPO AT THIS TIME. NO FURTHER NEEDS OR CONCERNS VERBALZIED, CALL LIGHT IN REACH.
--- NOTE | 2023-11-17 01:32 | NUR ---
FOCUSED ASSESSMENT UNCHANGED FROM START OF SHIFT, NEW BAG IV FLUIDS HUNG AND INFUSING WNL. pt UP TO VOID. pt INDEPENDENT IN ROOM. CALL LIGHT IN REACH, pt REPORTS SOME PAIN TO ABD, DID NOT REPORT NUMBER AND DECLINED PRN PAIN MEDICATION AT THIS TIME. WILL CONTINUE TO MONITOR.
--- NOTE | 2023-11-17 03:44 | NUR ---
ROUNDED ON pt, pt RESTING QUIETLY IN BED WITH EUES CLOSED. ON RA, RR EVEN AND UNLABORED. NO DISTRESS NOTED, CALL LIGHT IN REACH. IV SITE WNL, FLUIDS INFUSING DIRECTED.
[2023-11-17 05:26] LABS: BASOPHILS 0.4 % (0-2); EOSINOPHILS 1.9 % (0-6); HEMATOCRIT 32.8 % (35.0-50.0); HEMOGLOBIN 10.8 g/dL (12.0-18.0); LYMPHOCYTES 33.2 % (24-44); MCH 27.4 (27-36); MCV 83.1 fl (81-99); MONOCYTES 7.3 % (0-12); NEUTROPHILS 57.2 % (39-80); PLATELET COUNT 263 K/uL (140-440); RBC 3.94 M/ul (4.3-5.7)
[2023-11-17 05:29] VITALS: BP 123/67
--- NOTE | 2023-11-17 05:30 | NUR ---
CALL LIGHT ANSWERED. PT NEEDED HAT IN TOILET EMPTIED. SPECIAL PROJECTS MANAGER OBTAINED VITALS AND I&O. PT STATES NO FURTHER NEEDS AT THIS TIME. CALL LIGHT PLACED WITHIN REACH.
--- NOTE | 2023-11-17 05:33 | NUR ---
LR WITH STRAIGHT TUBING/EXTENSION SET PRIMED AND READY FOR OR. IV SITE WNL. NO CHANGE TO LEFT KNEE, NO OPEN AREA/SORE NOTED. WILL CONTINUE TO MONITOR. CALL LIGHT IN REACH.
[2023-11-17 05:45] LABS: ALBUMIN 2.8 g/dL (3.4-5.0); ALBUMIN/GLOBULIN RATIO 0.72 (1.1-2.4); ANION GAP 11.4 (7-21); BILIRUBIN, TOTAL 0.8 ng/dL (0.2-1.0); BUN/CREATININE RATIO 6.57 (6.0-28.6); CALCIUM 8.9 mg/dL (8.5-10.1); CREATININE, SERUM 0.76 mg/dL (0.55-1.02); POTASSIUM 3.4 mmol/L (3.5-5.1); PROTEIN, TOTAL 6.7 g/dL (6.4-8.2)
--- NOTE | 2023-11-17 06:21 | NUR ---
scheduled iv abx given-see emar. iv site wnl. lr with straight tubing/extension set primed and in room for or procedure.
--- NOTE | 2023-11-17 06:29 | NUR ---
WIRE PRODUCTS INSPECTOR GAVE PT CHG WIPES. PT INSTRUCTED ON HOW TO WIPE HERSELF DOWN AND GIVEN A CLEAN GOWN. PT PREFORMED [place] INDEPENDENTLY. WIRE PRODUCTS INSPECTOR CHANGED PT BED LINENS. PT BACK IN BED. PT STATES NO FURTHER NEEDS AT THIS TIME. CALL LIGHT WITHIN REACH.
--- NOTE | 2023-11-17 07:30 | NUR ---
RECIEVED SHIFT REPORT. PT IS AWAKE IN BED, MOM AT BEDSIDE. DENIES NEEDS. CALL LIGHT IN REACH.
[2023-11-17] MEDS ORDERED: POTASSIUM CHLORIDE 20 MEQ,LIDOCAINE HCL 1% 20 MG in DEXTROSE 5% 250 ML IV ONE (08:15)
[2023-11-17] MEDS ORDERED: POTASSIUM CHLORIDE 10 MEQ/100 ML BAG IV SCH (09:00)
--- NOTE | 2023-11-17 09:33 | NUR ---
MORNING ASSESSMENT COMPLETE. PT REPORTS NAUSEA, ANTINAUSEA MEDICATION GIVEN (PER EMAR). BOWEL SOUNDS ACTIVE, TENDER. DENIES PAIN. MOM AT BEDSIDE. CALL LIGHT IN REACH.
--- NOTE | 2023-11-17 09:45 | NUR ---
Pt denies needs. Waiting for surgery.
--- NOTE | 2023-11-17 09:45 | NUR ---
UR CONCURRENT CLINICAL REVIEW: SHARIFA, MEETS INPT FOR PACREATITIS WITH COMMON DUCT STONE CRITERIA VARIANCE ENTERED FOR CARE DAY 4, GUIDELINE DAY 2 [facility] INPT 11/14/23 @1450 ORDER MATCHES STATUS AUTH PENDING CLINICAL REVIEW CLINICALS SENT VIA [employer] WILL SEND UPDATE TODAY. PLAN TO DC TO HOME WHEN STABLE, SURGERY TODAY. 11/20/23
[2023-11-17 09:46] VITALS: BP 154/84
--- NOTE | 2023-11-17 09:53 | NUR ---
PT REPORTS BLOOD IN HER URINE. THIS RN IN ROOM TO ASSESS URINE. URINE HAS A BLOOD TINGE TO IT. ASKED PT IS SHE IS ON HER MENSES AND PT STATES SHE HAD IT TWO WEEKS AGO, BUT DOESNT FEEL LIKE SHE IS CRAMPING. PT SAYS HER PERIODS ARE NORMALLY HEAVY AND IT LOOKS LIKE IT WOULD BE ON THE END OF IT IF SHE WAS ON IT. DENIES DISCOMFORT.
[2023-11-17] MEDS ORDERED: propofoL 200 MG/20 ML VIAL ONE (11:05)
[2023-11-17] MEDS ORDERED: ondansetron HCL 4 MG/2 ML VIAL ONE (11:05)
[2023-11-17] MEDS ORDERED: SUCCINYLCHOLINE IN 0.9% NACL 200 MG/10 ML SYRINGE ONE ×2 (11:05→13:51)
[2023-11-17] MEDS ORDERED: DEXAMETHASONE SOD PHOS 4 MG/ML VIAL ONE (11:05)
[2023-11-17] MEDS ORDERED: SUGAMMADEX SODIUM 200 MG/2 ML ML ONE (11:05)
[2023-11-17] MEDS ORDERED: ROCURONIUM BROMIDE 50 MG/5 ML SYR ONE (11:05)
[2023-11-17] MEDS ORDERED: KETOROLAC TROMETHAMINE 30 MG/ML VIAL ONE (11:05)
[2023-11-17] MEDS ORDERED: METOCLOPRAMIDE HCL 10 MG/2 ML SDV ONE (11:05)
[2023-11-17] MEDS ORDERED: LACTATED RINGER'S 1,000 ML IV ONE (11:05)
[2023-11-17] MEDS ORDERED: fentaNYL citrate 100 MCG/2 ML VIAL ONE (11:06)
[2023-11-17] MEDS ORDERED: LIDOCAINE HCL 4% 5 ML AMP ONE (11:06)
[2023-11-17] MEDS ORDERED: MIDAZOLAM HCL 2 MG/2 ML VIAL ONE (11:06)
[2023-11-17] MEDS ORDERED: FAMOTIDINE 20 MG/ 2 ML VIAL ONE (11:06)
--- NOTE | 2023-11-17 12:09 | NUR ---
IN PUMP ALARMING, RESOLVED. IV POTASSIUM COMPLETE. IV FLUIDS CONTINUE INFUSING WNL. PT DENIES ANY OTHER NEEDS AT THIS TIME. PT SITTING UP IN BED. CALL LIGHT IN REACH.
[2023-11-17] MEDS ORDERED: droPERidol 5 MG/2 ML VIAL ONE (13:41)
[2023-11-17] MEDS ORDERED: MORPHINE SULFATE 1 MG/ML VIAL ONE (13:57)
[2023-11-17] MEDS ORDERED: METOPROLOL TARTRATE 5 MG/5 ML VIAL ONE (14:14)
--- NOTE | 2023-11-17 14:50 | NUR ---
11/17/23 1450 Mae Sorensen 1439- PT PRESENTS TO PACU, SEMI OLEARY POSITION. OPA IN PLACE WITH 6L O2 PER MASK, BREATHING EVEN AND NON LABORED. LR INFUSING TO RAC IV. ABD SOFT, NON DISTENDED. 4 LAP SITES WITH STERI STRIPS IN PLACE TO ABD. ALL MONITORS IN PLACE.
[2023-11-17] MEDS ORDERED: TYLENOL EXTRA500 MG PO (14:55)
[2023-11-17] MEDS ORDERED: HYDROCODON-ACE1 EA10 PO (14:56)
[2023-11-17] MEDS ORDERED: MORPHINE SULFATE 10 MG/ML VIAL IV PRN (15:00)
[2023-11-17] MEDS ORDERED: METOCLOPRAMIDE HCL 10 MG/2 ML SDV IV PRN (15:00)
[2023-11-17] MEDS ORDERED: fentaNYL citrate 50 MCG/ML SDV IV PRN (15:00)
[2023-11-17] MEDS ORDERED: IBLOOD GLUCOSE TEST STRIP 1 EA TEST VI PRN (15:00)
[2023-11-17] MEDS ORDERED: droPERidol 5 MG/2 ML VIAL IV PRN (15:00)
[2023-11-17] MEDS ORDERED: NALOXONE HCL 0.4 MG SYR IV PRN (15:00)
[2023-11-17] MEDS ORDERED: PROCHLORPERAZINE EDISYLATE 10 MG/2 ML VIAL IV PRN (15:00)
[2023-11-17] MEDS ORDERED: ondansetron HCL 4 MG/2 ML VIAL IV PRN (15:00)
--- NOTE | 2023-11-17 15:45 | NUR ---
PT RETURNS BACK TO [place] FROM PACU. PT IS AWAKE IN BED, REQUESTING TO USE THE RESTROOM. PT WAS ABLE TO STAND BUT UNABLE TO WALK TO THE RESTROOM DUE TO DIZZINESS. PT PIVOTED TO THE BSC WITHOUT DIFFICULTY. PT STATES PAIN LEVEL IS 6/10, BUT TOLERABLE. CPOX IN PLACE. LAP SITES X4 C/D/I, NO BLEEDING NOTED. MOM AT BEDSIDE. DENIES NEEDS.
[2023-11-17] MEDS ORDERED: ACETAMINOPHEN 500 MG TAB PO PRN (16:00)
[2023-11-17] MEDS ORDERED: HYDROCODONE/ACETA 5/325 TAB PO PRN (16:00)
[2023-11-17] MEDS ORDERED: IBUPROFEN 600 MG TAB PO PRN (16:00)
[2023-11-17 16:45] VITALS: BP 141/80
--- NOTE | 2023-11-17 17:02 | NUR ---
POST OP ASSESSMENT COMPLETE. PT ABLE TO WALK TO THE BATHROOM W/O DIF. PT ASKING TO STAY ANOTHER NIGHT DUE TO NOT FEELING COMFORTABLE TO GO HOME TO A BABY FEELING THIS WAY. REPORTS 6/10 PAIN, AND IS NAUSEOUS. MEDS GIVEN (PER EMAR). BOWEL TONES HYPOACTIVE. SCANT SEROUS DRAINAGE NOTED TO LAP SITES X4. MOM AT BEDSIDE. CALL LIGHT IN REACH
[2023-11-17 17:47] VITALS: BP 112/67
--- NOTE | 2023-11-17 17:56 | NUR ---
IN TO ANSWER CALL LIGHT. PT LAYING IN BED. PT REQUESTING TEMPERATRUE TO BE TURNED DOWN. TEMPERATURE TURNED DOWN. PT DENIES ANY OTHER NEEDS AT THIS TIME. CALL LIGHT IN REACH. FAMILY IN ROOM.
--- NOTE | 2023-11-17 18:26 | NUR ---
DR MONTERO NOTIFIED THAT PT IS REQUESTING TO STAY OVERNIGHT. NO ORDERS AT THIS TIME.
--- NOTE | 2023-11-17 19:17 | NUR ---
BEDSIDE REPORT RECEIVED FROM JAC RN, PT ALERT AND ORIENTENED, EATING DINNER AND DENIES NAUSEA AT THIS TIME, MOTHER AT BEDSIDE AND SUPPORTIVE, PT DENIES NEEDS AT THIS TIME IV PATENT, INFUSING WELL AT 100ML/HR WITH LR.
[2023-11-17 19:18] VITALS: BP 137/84
[2023-11-17 20:24] VITALS: BP 120/66
--- NOTE | 2023-11-17 20:29 | NUR ---
IV PUMP ALARMING. RN NOTIFED. VITALS AND I&O DOCUMENTED. PT STATES NO NEEDS AT THIS TIME. CALL LIGHT WITHIN REACH.
[2023-11-17] MEDS ORDERED: HEParin SOD (PORCINE) 5,000 UNIT/ML SDV SUB-Q SCH (21:00)
--- NOTE | 2023-11-17 21:37 | NUR ---
PT ASLEEP, RESP EVEN AND REG, AWAKENS BRIEFLY FOR ASSESSMENT AND PLACEMENT OF SCDS, PT WITHOUT COMPLAINTS AND BACK TO SLEEP QUICKLY, MOTHER AT BEDSIDE, CPOX AT 93% ON RA, IV PATENT IN RIGHT AC, SITE INTACT, LR INFUSING AT 100ML/HR, SIDE RAILS UP X 4, CALL LIGHT IN REACH.
--- NOTE | 2023-11-17 23:35 | NUR ---
PT APPEARS TO SLEEP, RESP EVEN AND REG, IVF INFUSING WELL.
[2023-11-18 00:02] VITALS: BP 120/66
--- NOTE | 2023-11-18 00:15 | NUR ---
CALL LIGHT ANSWERED. PT NEEDED HELP GETTING TO THE BATHROOM. MANAGER OF HOSPITAL SBA WITH IV POLE TO BATHROOM. PT VOIDED. OUTPUT NOTED. PT ASSISTED BACK TO BED. CPOX AND SCDS BACK ON. PT GIVEN FRESH ICE WATER UPON REQUEST. PT STATES NO FURTHER NEEDS AT THIS TIME. CALL LIGHT WITHIN REACH.
--- NOTE | 2023-11-18 00:23 | NUR ---
PT AWAKE AND ALERT, RECENTLY WENT TO THE BR TO VOID, PT BACK TO BED, SCDS IN PLACE, PT C/O ABDOMINAL PAIN 11/10 AFTER AMBULATING, REQUESTING 1 NORCO, MEDICATED PER ORDER, PUDDING AND CRACKERS GIVEN, PT DENIES NAUSEA, IVF INFUSING WELL.
[2023-11-18 01:46] VITALS: BP 124/72
--- NOTE | 2023-11-18 01:49 | NUR ---
BIOMETRICS CONSULTANT OBTAINED VITALS AND I&O. PT STATES NO NEEDS AT THIS ITME. CALL LIGHT WITHIN REACH.
--- NOTE | 2023-11-18 02:32 | NUR ---
PT ASLEEP, RESP EVEN AND REG, NEW BAG OF LR HUNG AND INFUSING WELL AT 100ML/HR, SITE INTACT,CPOX AT 97%.
--- NOTE | 2023-11-18 04:24 | NUR ---
PT APPEARS TO SLEEP, RESP EVEN AND REG, CPOX AT 96%, HR 62, MOTHER REMAINS ASLEEP ON COUCH.
[2023-11-18 05:18] VITALS: BP 128/77
--- NOTE | 2023-11-18 05:29 | NUR ---
FACILITIES COORDINATOR OBTAINED VITALS. PT STATED SHE NEEDED TO USE THE BATHROOM. FACILITIES COORDINATOR SBA TO BATHROOM. PT VOIDED. PT ASSISTED BACK TO BED. SCDS AND CPOX RECONNECTED. OUTPUT MEASURED AND DOCUMENTED. NO NEW INTAKE AT THIS TIME. PT STATES NO FURTHER NEEDS AT THIS TIME. CALL LIGHT WITHIN REACH.
--- NOTE | 2023-11-18 06:06 | NUR ---
PT AWAKE AND ALERT, C/O INCISIONAL PAIN 10/10, MEDICATED WITH ONE NORCO AND MORTIN PER ORDER, PUDDING GIVEN, PT WITHOUT COMPLAINTS OF NAUSEA, LAP SITES WITH ONLY SCANT DRIED DRAINAGE, PT REPORTS SHE IS MENSTRATING WITH A LIGHT FLOW AT THIS TIME, IV PATENT, FRESH WATER GIVEN.
[2023-11-18 06:19] VITALS: BP 128/77
--- NOTE | 2023-11-18 08:30 | NUR ---
MORNING ASSESSMENT COMPLETE. PT WAS IN RESTROOM. STATES IS READY TO GO HOME. STATES PAIN WITH MOVEMENT BUT SUBSIDES AT REST. BOWEL TONES ACTIVE IN ALL QUADRANTS. UNABLE TO PASS GAS AT THIS TIME. MOM AT BEDSIDE. CALL LIGHT IN REACH.
--- NOTE | 2023-11-18 08:40 | NUR ---
WINSTON CALLED, UPDATED GIVEN. VERBAL OKAY TO DISCHARGE PT HOME.
[2023-11-18 09:02] VITALS: BP 135/74
--- NOTE | 2023-11-20 13:20 | OR ---
[facility] [address] [place], [place] [address] Signed DATE OF OPERATION: 11/17/2023 SURGEON: Lucinda Montero MD PREOPERATIVE DIAGNOSES: 1. Gallstone pancreatitis. 2. Obesity. POSTOPERATIVE DIAGNOSES: 1. Gallstone pancreatitis. 2. Obesity. PROCEDURES: 1. Laparoscopic cholecystectomy with intraoperative cholangiogram. 2. Laparoscopic lysis of adhesions, prolonged complicated and difficult. ANESTHESIA: General endotracheal; Lucinda Caballero CRNA and local 10 mL of 0.25% Marcaine with epinephrine. INDICATION: This obese 18-year-old white woman is three months from her 1st child. Her nicker and breaker was Dr. Angeles. The patient presented to the emergency room on November 14, 2023 with lipase level elevated beyond the limits of the laboratory as well as elevated liver enzymes including an elevated bilirubin of 4.0. Gallbladder ultrasound confirmed multiple gallstones. The patient was admitted to the hospital and given intravenous fluids, made n.p.o. and intravenous antibiotics and parenteral pain medication administered. Her clinical symptoms of the pancreatitis have essentially resolved. Her lipase is now down to 375 and liver enzymes are now normal. She is appropriate at this point to undergo cholecystectomy, so as to prevent recurrent bouts of gallstone pancreatitis. She understands the risk of bleeding, infection, bile duct injury, need for open procedure, need for common duct exploration and so forth and wished to proceed. FINDINGS: Significant adhesions were noted to the gallbladder, which were essentially "melted" to the gallbladder. These were taken down, which was somewhat prolonged, but accomplished safely. The gallbladder itself was chronically and subacutely inflamed. Cholangiogram performed was normal without sign of retained stone or biliary obstruction in any way. Once removed, the gallbladder was inspected and found to have a multitude of small yellow gallstones. There was no sign of malignancy associated with mucosa of the Electronically Signed By: LUCINDA MONTERO MD 11/20/23 1320 PATIENT NAME: BELKIS MARTINEZ OPERATIVE REPORT DATE OF : 03 REPORT #: [id number] PHYSICIAN: LUCINDA MONTERO MD PCP: DEV ANGELES (HARISH) DO REPORT IS CONFIDENTIAL AND NOT TO BE RELEASED WITHOUT AUTHORIZATION [facility] [address] [place], [place] [address] Signed gallbladder wall itself. The liver had mild fatty infiltration. DESCRIPTION OF PROCEDURE: The patient was brought to the operating room, given a general endotracheal anesthetic. Preoperative antibiotic Ancef was given. Sequential compression device stockings were used and heparin subcutaneously administered. The abdomen was prepared with chlorhexidine solution and draped sterilely. An infraumbilical incision was made and using an open Edward cannula technique, the abdomen was entered and pneumoperitoneum achieved to a level of 14 mmHg of carbon dioxide gas. Intra-abdominal inspection showed no sign of ascites or carcinomatosis. The gallbladder was obscured from view at that point. The liver did show some fatty infiltration. Three additional trocars were placed in their usual configuration in the subxiphoid, right midclavicular, and right anterior axillary line. Gallbladder was elevated cephalad and found to have subacute inflammation and omentum that was contiguous with the gallbladder in its entirety. Using blunt electrocautery dissection, the omentum was peeled off the gallbladder with all due care, ultimately revealing the entirety of the gallbladder itself. With meticulous dissection, the triangle of Calot was dissected free ultimately identifying well the cystic duct. The gallbladder was quite markedly thickened as was the cystic duct. Once a window of safety was ascertained, a clip was applied across the gallbladder cystic duct junction. Clips were applied across cystic arterial branches as necessary as well. A transverse choledochotomy was made in the cystic duct and egress of mucoid yellow fluid was noted. Using the Rodriguez type cholangiocatheter, intraoperative cholangiography was undertaken showing free flow of contrast in the biliary tree with prompt emptying into the duodenum. There was no sign of filling defect or other abnormality. The catheter was removed and the cystic duct was triply clipped and divided. The gallbladder was then dissected free in a retrograde fashion using electrocautery. Gallbladder was extracted through the infraumbilical port site without problem, opened on the back table and found to have innumerable small gallstones. There was no sign of neoplasm. Irrigation was undertaken in the subhepatic space and there was no sign of bile leak, bleeding or other problems. The trocars removed under direct visualization showing no sign of bleeding. The infraumbilical fascial incision was reapproximated with interrupted 0 Vicryl suture as well as a running 0 PDS suture. 10 mL of 0.25% Marcaine with epinephrine was injected locally. The skin was closed with interrupted 3-0 Vicryl. Steri-Strips were applied. The patient was ultimately extubated and transferred to the recovery room in good condition having suffered no complications. Sponge, needle, and instrument counts were reported as correct x3. Lucinad Montero MD Electronically Signed By: LUCINDA MONTERO MD 11/20/23 1320 PATIENT NAME: BELKIS MARTINEZ OPERATIVE REPORT DATE OF : 03 REPORT #: [id number] PHYSICIAN: LUCINDA MONTERO MD PCP: DEV ANGELES) DO REPORT IS CONFIDENTIAL AND NOT TO BE RELEASED WITHOUT AUTHORIZATION [address] [place] [address] Signed /CATARINA /[id number] cc: DO Man Chou MD Copies: DEV ANGELES) MAN CHASE MD ~ Electronically Signed By: LUCINDA MONTERO MD 11/20/23 1320 PATIENT NAME: BELKIS MARTINEZ OPERATIVE REPORT DATE OF : 03 REPORT #: [id number] PHYSICIAN: LUCINDA MONTERO MD PCP: DEV ANGELES) REPORT IS CONFIDENTIAL AND NOT TO BE RELEASED WITHOUT AUTHORIZATION
--- NOTE | 2023-11-20 13:20 | DS ---
[facility] [address] [place], [place] [address] Signed ADMISSION DATE: 11/14/2023 DISCHARGE DATE: 11/17/2023 REASON FOR ADMISSION: Gallstone pancreatitis. HISTORY OF PRESENT ILLNESS: This 18-year-old obese white woman presented to the emergency room and was evaluated by Dr. Man Palacios on November 14, 2023. She was found to have findings consistent with acute gallstone pancreatitis. Her lipase was greater than 375, ALT 431, alkaline phosphatase 278, bilirubin 4.9, white count 12.9, hematocrit 40.9, platelets 322,000. Gallbladder ultrasound was performed confirming multiple gallstones and fatty liver. She was admitted for further evaluation and care. PHYSICAL EXAMINATION: GENERAL: Showed a pleasant white woman who did not look systemically toxic. BMI 36.3. NECK: Trachea midline. CHEST: Clear. HEENT: Mucous membranes slightly moist. HEART: Regular without murmur. ABDOMEN: Quite obese. Significant tenderness is noted in the epigastric or right subcostal areas. She had no ascites. She had no clubbing, cyanosis, or edema. HOSPITAL COURSE: She underwent fluid resuscitation as well as made n.p.o., setting protection of stomach with Pepcid and intravenous antibiotic administration of Ancef. She has maintained an n.p.o. status initially and advance to simply clear liquids for comfort. Her lipase level indeed remained quite elevated, though her liver enzymes steadily improved. By November 17, 2023, her lipase was nonmeasurable at 375, but liver enzymes otherwise were essentially normal. LABORATORY DATA: White count was down to 6.6. Her preoperative alkaline phosphatase was 152, ALT 120, AST 39, and total bilirubin 0.8. She underwent laparoscopic cholecystectomy with intraoperative cholangiogram on November 17, 2023. She was found to have subacute inflammation of the gallbladder with adhesions to the gallbladder wall. Cholangiogram was normal. The gallbladder was excised and found to have multifaceted very small stones. There is no sign of saponification in the region of the wendy hepatis. Electronically Signed By: LUCINDA MONTERO MD 11/20/23 1320 PATIENT NAME: BELKIS MARTINEZ DISCHARGE SUMMARY DATE OF : 03 REPORT #: [id number] PHYSICIAN: LUCINDA MONTERO MD PCP: DEV BARRON (HARISH) DO REPORT IS CONFIDENTIAL AND NOT TO BE RELEASED WITHOUT AUTHORIZATION [facility] [address] [place], [place] [address] Signed It is anticipated that she will be discharged later in the day should she satisfy discharge criteria including oral intake, oral pain medication and doing well. It is anticipated she will return to see me in approximately four weeks. She will maintain a regular diet and to avoid alcohol for four weeks at minimum. She is permitted to lift no more than 20 pounds. I will keep Steri-Strips on and can shower in 48 hours. DISCHARGE MEDICATIONS: 1. We will include plain Tylenol 500 mg two tablets p.o. q.6 hours as needed for pain #30. 2. Uriah 5/325 one p.o. q.6 hours as needed for severe pain #6. She will continue her usual medication of sertraline 50 mg p.o. daily. 3. Flexeril 10 mg p.o. b.i.d. as needed for muscle spasm. 4. Meloxicam 50 mg tablets p.o. daily for pain. 5. Zofran 4 mg sublingual as needed for pain. DISCHARGE DIAGNOSES: 1. Acute gallstone pancreatitis. 2. Status post laparoscopic cholecystectomy with intraoperative cholangiogram (normal) November 17, 2023. 3. Obesity. 4. state three months. 5. Chronic abdominal pain and nausea. MD MASON Salter/CATARINAL /[id number] cc: DO Man Chou MD Electronically Signed By: LUCINDA MONTERO MD 11/20/23 1320 PATIENT NAME: BELKIS MARTINEZ DISCHARGE SUMMARY DATE OF : 03 REPORT #: [id number] PHYSICIAN: LUCINDA MONTERO MD PCP: DEV BARRON) REPORT IS CONFIDENTIAL AND NOT TO BE RELEASED WITHOUT AUTHORIZATION [address] [address] Signed Copies: DEV BARRON) MAN CHASE MD ~ Electronically Signed By: LUCINDA MONTERO MD 11/20/23 1320 PATIENT NAME: BELKIS MARTINEZ DISCHARGE SUMMARY DATE OF : 03 REPORT #: [id number] PHYSICIAN: LUCINDA MONTERO MD PCP: DEV BARRON (HARISH) DO REPORT IS CONFIDENTIAL AND NOT TO BE RELEASED WITHOUT AUTHORIZATION
--- NOTE | 2023-11-22 14:11 | PATH ---
[facility] [place] [facility] [address] [facility] [place], [place] [address] Signed SPECIMEN(S): A GALLBLADDER SPECIMEN SOURCE: A. GALLBLADDER CLINICAL HISTORY: Gallstone pancreatitis FINAL PATHOLOGIC DIAGNOSIS: Gallbladder, cholecystectomy: - Chronic calculous cholecystitis. - Focal mucosal cholesterolosis. JVR:cml MICROSCOPIC EXAMINATION: Histologic sections of all submitted blocks are examined by light microscopy. These findings, together with the gross examination, support the pathologic diagnosis. GROSS DESCRIPTION: The specimen, labeled and designated "Octavio Vergara, gallbladder," is received in formalin and consists of Specimen: Previously open gallbladder. Dimensions: 6.5 x 2.4 x 1.4 cm. Serosa: Krupp-mcnamara congested smooth glistening. Cystic Duct: Unobstructed. Calculi: Multiple yellow-orange bosselated Calculi measuring 4.0 x 3.0 x 0.4 cm in aggregate. Mucosa: Mcnamara velvety. Wall thickness: 0.5 cm. Lymph node: No pericystic lymph nodes are grossly identified. Additional: Moderate amounts of dark green thick bile. Coder Operator sections are submitted in (A1). MASON (under the direct supervision of a pathologist) The Gross Description was prepared using a voice recognition system. The report was reviewed for accuracy; however, sound-alike word errors, addition and/or deletions may occur. If there is any question about this report, please contact Client Services. PERFORMING LABORATORY: Technical component was performed by [employer], Omega Forrest, PATIENT NAME: BELKIS VERGARA PATHOLOGY DATE OF : 03 REPORT #: [id number] PHYSICIAN: CHRISTY PATHOLOGY PCP: DEV BARRON (HARISH) DO REPORT IS CONFIDENTIAL AND NOT TO BE RELEASED WITHOUT AUTHORIZATION [facility] [place] [facility] [address] [facility] [place], [place] [address] [place] [address] (CLIA# [id number]). Professional interpretation was performed by [facility] - [facility], [address] [place] [address] [place] [address] (CLIA#: [id number]). Diagnostician: Cricket Foy MD Pathologist Electronically Signed 11/22/2023 Copies: ~ PATIENT NAME: BELKIS VERGARA PATHOLOGY DATE OF : 03 REPORT #: [id number] PHYSICIAN: CHRISTY PATHOLOGY PCP: DEV BARRON) DO REPORT IS CONFIDENTIAL AND NOT TO BE RELEASED WITHOUT AUTHORIZATION
== END 2023-11-18 09:58 | disposition home or self-care (01) | DRG 417 ==
LOC: ED 12:17 → MS 15:06
PROVIDERS: Emergency Medicine; ADMIT Surgery; ATTEND Surgery
PROC: 0FT44ZZ Resection of Gallbladder, Percutaneous Endoscopic Approach (ICD-10-PCS; principal; 2023-11-17 11:30)
DX: K80.12 Calculus of gallbladder with acute and chronic cholecystitis without obstruction (principal); K85.10 Biliary acute pancreatitis without necrosis or infection; K76.0 Fatty (change of) liver, not elsewhere classified; E66.9 Obesity, unspecified; Z68.36 Body mass index [BMI] 36.0-36.9, adult; Z87.891 Personal history of nicotine dependence; Z79.2 Long term (current) use of antibiotics; Z91.041 Radiographic dye allergy status; Z91.013 Allergy to seafood; Z79.899 Other long term (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; Z88.1 Allergy status to other antibiotic agents
CPT/HCPCS: 00790; 36415; 74300; 76705; 80053; 81001; 82150; 83690; 84703; 85025; 88304; 96374; 96375; 99285-25; A9270; J0330; J0690; J1100; J1170; J1644; J1790; J1885; J2250; J2270; J2274; J2405; J2704; J2765; J3010; J3480; J3490; J7030; J7121; Q9967

== ENCOUNTER 2024-02-01 09:03 | Emergency (ER) | payer OTHER ==
[~2024-02-01] VITALS: Ht 162.6 cm; Wt 99.6 kg
[~2024-02-01 09:03] MED LIST changes: +MELOXICAM15 MG PO; +ONDANSETRON ODT4 MG PO; +TYLENOL EXTRA500 MG PO
[2024-02-01 10:34] VITALS: BP 120/73
== END 2024-02-01 10:34 | disposition home or self-care (01) ==
LOC: ED 09:03
DX: N64.4 Mastodynia (principal); Z87.891 Personal history of nicotine dependence; Z88.0 Allergy status to penicillin; Z91.013 Allergy to seafood; Z91.048 Other nonmedicinal substance allergy status; Z79.899 Other long term (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
CPT/HCPCS: 76642; 99283

== ENCOUNTER 2024-03-25 16:16 | Emergency (ER) | payer OTHER ==
[~2024-03-25] VITALS: Ht 162.6 cm; Wt 102.4 kg
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
[2024-03-25] MEDS ORDERED: ondansetron HCL 4 MG/2 ML VIAL IV ONE (20:00)
[2024-03-25] MEDS ORDERED: MORPHINE SULFATE 4 MG/ML VIAL IV ONE (20:00)
[2024-03-25] MEDS ORDERED: SODIUM CHLORIDE 0.9% 1,000 ML IV ONE (20:00)
[2024-03-25 20:05] LABS: BILIRUBIN, URINE NEGATIVE (negative); BLOOD/HGB, URINE MODERATE (Negative); KETONE, URINE NEGATIVE (Negative); LEUK ESTERASE, URINE NEGATIVE (negative); NITRITE, URINE NEGATIVE (negative)
[2024-03-25 20:14] LABS: BACTERIA, URINE NONE SEEN /hpf (negative); CASTS, URINE NONE SEEN \\lpf; COLLECTION TYPE, URINE CLEAN CATCH; EPITHELIAL CELLS, URINE NONE SEEN /lpf (0-1+); RED BLOOD CELLS, URINE 0-1 /hpf (0-5); REFLEX CULTURE, URINE No (No); WHITE BLOOD CELLS, URINE 0-1 /HPF (0-5)
[2024-03-25] MEDS ORDERED: ESCITALOPRAM OX10 MG PO (20:15)
[2024-03-25 20:51] LABS: BASOPHILS 0.8 % (0-2); EOSINOPHILS 1.5 % (0-6); HEMATOCRIT 39.4 % (35.0-50.0); HEMOGLOBIN 13.2 g/dL (12.0-18.0); LYMPHOCYTES 24.8 % (24-44); MCH 27.3 (27-36); MCHC 33.4 g/dl (30-36); MCV 81.7 fl (81-99); MONOCYTES 6.9 % (0-12); PLATELET COUNT 327 K/uL (140-440); RBC 4.82 M/ul (4.3-5.7); RDW 14.8 (10.5-15.0)
[2024-03-25 21:07] LABS: ALBUMIN 3.6 g/dL (3.4-5.0); ALBUMIN/GLOBULIN RATIO 0.84 (1.1-2.4); BILIRUBIN, TOTAL 0.4 ng/dL (0.2-1.0); BUN/CREATININE RATIO 12.5 (6.0-28.6); CALCIUM 9.3 mg/dL (8.5-10.1); CREATININE, SERUM 0.72 mg/dL (0.55-1.02); PROTEIN, TOTAL 7.9 g/dL (6.4-8.2)
[2024-03-25] MEDS ORDERED: ONDANSETRON ODT8 MG PO (22:52)
[2024-03-25] MEDS ORDERED: TRAMADOL HCL50 MG PO (22:52)
[2024-03-25] MEDS ORDERED: TRAMADOL HCL 50 MG HOME.PACK PO ONE (23:00)
[2024-03-25] MEDS ORDERED: ONDANSETRON 4 MG HOME.PACK SL ONE (23:00)
[2024-03-25 23:13] VITALS: BP 120/76
== END 2024-03-25 23:15 | disposition home or self-care (01) ==
LOC: ED 16:16
PROVIDERS: Family Medicine
DX: R10.13 Epigastric pain (principal); R10.11 Right upper quadrant pain; N93.8 Other specified abnormal uterine and vaginal bleeding; Z87.891 Personal history of nicotine dependence; Z88.8 Allergy status to other drugs, medicaments and biological substances; Z88.0 Allergy status to penicillin; Z91.013 Allergy to seafood; Z79.899 Other long term (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
CPT/HCPCS: 36415; 74177; 80053; 81001; 83690; 84703; 85025; 96361; 96375; 99284-25; A9270; J2270; J2405; J7030

== ENCOUNTER 2024-04-03 20:02 | Emergency (ER) | payer OTHER ==
[~2024-04-03] VITALS: Ht 162.6 cm; Wt 101.6 kg
[~2024-04-03 20:02] MED LIST changes: +ESCITALOPRAM OX10 MG PO; +ONDANSETRON ODT8 MG PO; +TRAMADOL HCL50 MG PO
--- OUTSIDE RECORDS SUMMARY | 2024-04-03 20:08 | XMS ---
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 EDipti VISIT COUNT (12 MO.) [address] [place] [address] TOTAL 7 NOTE: Visits indicate total known visits. ED/UCC VISIT TRACKING (12 MO.) 04/03/2024 20:02 [facility] [place] TYPE: Emergency COMPLAINT: - ABDOMINAL PAIN 03/25/2024 16:16 [facility] [place] TYPE: Emergency COMPLAINT: - ABDOMAIN PAIN DIAGNOSES: - Allergy status to other drugs, medicaments and biological substances - Allergy status to penicillin - Allergy to seafood - Epigastric pain - Other terminologist (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 - Other specified abnormal uterine and vaginal bleeding - Personal history of nicotine dependence - Right upper quadrant pain 02/01/2024 09:03 [facility] [place] TYPE: Emergency COMPLAINT: - BREAST PAIN DIAGNOSES: - Allergy status to penicillin - Allergy to seafood - Mastodynia - Other terminologist (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 - Other nonmedicinal substance allergy status - Personal history of nicotine dependence 11/14/2023 12:17 [facility] [place] TYPE: Emergency COMPLAINT: - FLANK PAIN,VOMITING 11/12/2023 04:04 [facility] [place] TYPE: Emergency COMPLAINT: - RT SHOULDER PAIN DIAGNOSES: - Allergy status to penicillin - Exposure to other specified factors, initial encounter - Other terminologist (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 - Pain in right [...] - Low back pain, unspecified - Other senior living (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 - Personal history of nicotine dependence - Strain of muscle, fascia and tendon of lower back, initial encounter INPATIENT VISIT TRACKING (12 MO.) 11/14/2023 15:06 [...] (change of) liver, not elsewhere classified - group home (current) use of antibiotics - 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 [place] TYPE: [facility] COMPLAINT: - LABOR DIAGNOSES: - 36 [...] childbirth - Unspecified maternal hypertension, complicating childbirth [email or web address]
[2024-04-03 20:47] LABS: BILIRUBIN, URINE NEGATIVE (negative); BLOOD/HGB, URINE MODERATE (Negative); KETONE, URINE NEGATIVE (Negative); LEUK ESTERASE, URINE NEGATIVE (negative); NITRITE, URINE NEGATIVE (negative)
[2024-04-03 21:00] LABS: BACTERIA, URINE NONE SEEN /hpf (negative); CASTS, URINE NONE SEEN \\lpf; COLLECTION TYPE, URINE CLEAN CATCH; CRYSTALS, URINE AMORPHOUS PHOSPH 2+ (0-1+); EPITHELIAL CELLS, URINE SQUAMOUS 2+ /lpf (0-1+); REFLEX CULTURE, URINE No (No)
[2024-04-03 22:29] LABS: BASOPHILS 3.9 % (0-2); EOSINOPHILS 0.7 % (0-6); HEMATOCRIT 41.4 % (35.0-50.0); HEMOGLOBIN 13.5 g/dL (12.0-18.0); MCH 26.9 (27-36); MCHC 32.5 g/dl (30-36); MCV 82.8 fl (81-99); MONOCYTES 4.3 % (0-12); NEUTROPHILS 81.1 % (39-80); PLATELET COUNT 311 K/uL (140-440); RDW 14.9 (10.5-15.0)
[2024-04-03 22:30] LABS: ALBUMIN 3.5 g/dL (3.4-5.0); ALBUMIN/GLOBULIN RATIO 0.8 (1.1-2.4); ANION GAP 11.7 (7-21); BILIRUBIN, TOTAL 0.6 ng/dL (0.2-1.0); BUN/CREATININE RATIO 14.1 (6.0-28.6); CALCIUM 9.2 mg/dL (8.5-10.1); CREATININE, SERUM 0.78 mg/dL (0.55-1.02); POTASSIUM 4.7 mmol/L (3.5-5.1); PROTEIN, TOTAL 7.9 g/dL (6.4-8.2)
[2024-04-04 00:33] VITALS: BP 124/72
[2024-04-05 00:54] LABS: RHEUMATOID FACTOR <10 IU/mL (0-14)
[2024-04-05 14:37] LABS: ANTI-NUCLEAR AB ANA,IGG ELISA Detected (None Detected)
[2024-04-06 14:26] LABS: ANTINUCLEAR AB (ANA),HEP-2,IGG <1:80 (<1:80)
== END 2024-04-04 00:33 | disposition home or self-care (01) ==
LOC: ED 20:02
PROVIDERS: Emergency Medicine
DX: R10.11 Right upper quadrant pain (principal); Z87.891 Personal history of nicotine dependence; Z88.8 Allergy status to other drugs, medicaments and biological substances; Z88.0 Allergy status to penicillin; Z91.013 Allergy to seafood; Z79.899 Other long term (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
CPT/HCPCS: 36415; 74177; 80053; 81001; 83690; 84703; 85025; 85651; 86038; 86431; 99284-25; Q9967

== ENCOUNTER 2024-05-18 09:36 | Emergency (ER) | payer OTHER ==
[~2024-05-18] VITALS: Ht 162.6 cm; Wt 97.5 kg
[2024-05-18 10:34] LABS: BASOPHILS 0.7 % (0-2); EOSINOPHILS 1.5 % (0-6); HEMATOCRIT 41.3 % (35.0-50.0); HEMOGLOBIN 13.8 g/dL (12.0-18.0); LYMPHOCYTES 18.4 % (24-44); MCHC 33.5 g/dl (30-36); MCV 83.6 fl (81-99); MONOCYTES 6.4 % (0-12); PLATELET COUNT 305 K/uL (140-440); RBC 4.94 M/ul (4.3-5.7)
[2024-05-18 10:52] LABS: ALBUMIN/GLOBULIN RATIO 0.95 (1.1-2.4); ANION GAP 14.1 (7-21); BUN/CREATININE RATIO 11.84 (6.0-28.6); CALCIUM 9.5 mg/dL (8.5-10.1); CREATININE, SERUM 0.76 mg/dL (0.55-1.02); POTASSIUM 4.1 mmol/L (3.5-5.1); PROTEIN, TOTAL 8.2 g/dL (6.4-8.2)
[2024-05-18 12:06] VITALS: BP 119/60
== END 2024-05-18 12:07 | disposition home or self-care (01) ==
LOC: ED 09:36
PROVIDERS: Emergency Medicine
DX: M25.551 Pain in right hip (principal); R10.11 Right upper quadrant pain; Z87.891 Personal history of nicotine dependence; Z90.49 Acquired absence of other specified parts of digestive tract; Z88.0 Allergy status to penicillin; Z91.013 Allergy to seafood; Z91.048 Other nonmedicinal substance allergy status; Z79.899 Other long term (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
CPT/HCPCS: 36415; 73502; 80053; 83690; 84703; 85025; 99284

== ENCOUNTER 2024-06-02 14:19 | Emergency (ER) | payer OTHER ==
[~2024-06-02] VITALS: Ht 162.6 cm; Wt 96.6 kg
--- OUTSIDE RECORDS SUMMARY | 2024-06-02 14:26 | XMS ---
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 Rishi VISIT COUNT (12 MO.) [address] [place], [place] [address]Kaser H. TOTAL 9 NOTE: Visits indicate total known visits. 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 - Other nonmedicinal substance allergy status - Pain in right hip - Personal history of nicotine dependence - Right upper quadrant pain 04/03/2024 20:02 [facility] TYPE: Emergency COMPLAINT: - ABDOMINAL PAIN DIAGNOSES: - Allergy status to other drugs, medicaments and biological substances - Allergy status to penicillin - Allergy to seafood - Other [place] 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 - Personal history of nicotine dependence - Right upper quadrant pain 03/25/2024 16:16 [facility] TYPE: Emergency COMPLAINT: - ABDOMAIN PAIN DIAGNOSES: - Allergy status to other drugs, medicaments and biological substances - Allergy status to penicillin - Allergy to seafood - Epigastric pain - Other [place] [facility] (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 - Other specified abnormal uterine and vaginal bleeding - Personal history of nicotine dependence - Right upper quadrant pain 02/01/2024 09:03 [facility] TYPE: Emergency COMPLAINT: - BREAST PAIN DIAGNOSES: - Allergy status to penicillin - Allergy to seafood - Mastodynia - Other [place] [facility] (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 - Other nonmedicinal substance allergy status - Personal history of nicotine dependence 11/14/2023 12:17 [facility] TYPE: Emergency COMPLAINT: - FLANK PAIN,VOMITING 11/12/2023 04:04 [facility] TYPE: Emergency COMPLAINT: - RT SHOULDER PAIN DIAGNOSES: - Allergy status to penicillin - Exposure to other specified factors, initial encounter - Other [place] [facility] (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 - Pain in right [...] - Low back pain, unspecified - Other 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 operator (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 - Personal history of [...] (change of) liver, not elsewhere classified - long term care administrator (current) use of antibiotics - long-term (current) use of antibiotics - Obesity, unspecified - Obesity, unspecified - Other 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 operator (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 - Other 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 operator (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 - Personal history of nicotine dependence - Personal history of nicotine dependence - Radiographic dye allergy status - Radiographic dye allergy status 08/17/2023 12:03 [facility] [place] TYPE: [facility] COMPLAINT: - LABOR DIAGNOSES: - 38 weeks [...] childbirth - Unspecified maternal hypertension, complicating childbirth [email or web address]
[2024-06-02] MEDS ORDERED: KETOROLAC TROMETHAMINE 30 MG/ML VIAL IM ONE (17:00)
[2024-06-02] MEDS ORDERED: LIDOCAINE HCL 4% 1 EACH PATCH TD ONE (17:00)
[2024-06-02] MEDS ORDERED: HYDROCODONE BIT/ACETAMINOPHEN 5/325 MG 1 TAB HOME.PACK PO PRN ×2 (17:45→18:00)
[2024-06-02 17:52] VITALS: BP 120/99
[2024-06-02] MEDS ORDERED: LIDOCAINE PATCH REMOVAL 1 EA TD SCH (21:00)
== END 2024-06-02 17:53 | disposition home or self-care (01) ==
LOC: ED 14:19
DX: S39.012A Strain of muscle, fascia and tendon of lower back, initial encounter (principal); Z87.891 Personal history of nicotine dependence; Z88.0 Allergy status to penicillin; Z91.048 Other nonmedicinal substance allergy status; Z91.013 Allergy to seafood; Z79.899 Other long term (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; X50.0XXA Overexertion from strenuous movement or load, initial encounter
CPT/HCPCS: 72070; 72100; 84703; 96372; 99283; A9270; J1885

== ENCOUNTER 2024-08-02 06:02 | Emergency (ER) | payer OTHER ==
[~2024-08-02] VITALS: Ht 162.6 cm; Wt 91.0 kg
[2024-08-02] MEDS ORDERED: FLUCONAZOLE150 MG PO (06:27)
[2024-08-02] MEDS ORDERED: LEVETIRACETAM500 MG PO (06:27)
[2024-08-02] MEDS ORDERED: METRONIDAZOLE500 MG PO (06:27)
[2024-08-02] MEDS ORDERED: SUMATRIPTAN SUC50 MG PO (06:27)
[2024-08-02] MEDS ORDERED: IBUPROFEN 600 MG TAB PO ONE (06:30)
[2024-08-02] MEDS ORDERED: PSEUDOEPHEDRINE HCL 30 MG TAB PO ONE (06:30)
[2024-08-02 06:44] LABS: CORONAVIRUS COVID-19 AG NEGATIVE (NEGATIVE)
[2024-08-02] MEDS ORDERED: CLEOCIN HCL300 MG PO (07:09)
[2024-08-02 07:15] VITALS: BP 115/70
== END 2024-08-02 07:15 | disposition home or self-care (01) ==
LOC: ED 06:02
PROVIDERS: Family Medicine
DX: J32.9 Chronic sinusitis, unspecified (principal); Z87.891 Personal history of nicotine dependence
CPT/HCPCS: 36415; 87651; 99283; A9270

== ENCOUNTER 2024-08-10 10:23 | Emergency (ER) | payer OTHER ==
[~2024-08-10] VITALS: Ht 162.6 cm; Wt 91.6 kg
[~2024-08-10 10:23] MED LIST changes: +CLEOCIN HCL300 MG PO; +FLUCONAZOLE150 MG PO; +LEVETIRACETAM500 MG PO; +METRONIDAZOLE500 MG PO; +SUMATRIPTAN SUC50 MG PO
--- OUTSIDE RECORDS SUMMARY | 2024-08-10 10:30 | XMS ---
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 EDipti VISIT COUNT (12 MO.) [address] [place] [address] TOTAL 11 NOTE: Visits indicate total known visits. ED/UCC VISIT TRACKING (12 MO.) 08/10/2024 10:23 [facility] TYPE: Emergency COMPLAINT: - BACK/HIP INJURY/PAIN 08/02/2024 06:02 [facility] TYPE: Emergency COMPLAINT: - COLD SYMPTOMS DIAGNOSES: - Acute pharyngitis, unspecified - Chronic sinusitis, unspecified - Personal history of nicotine dependence 06/02/2024 14:19 [facility] TYPE: Emergency COMPLAINT: - BACK INJURY DIAGNOSES: - Allergy status to penicillin - Allergy to seafood - Low back pain, unspecified - Other [facility] (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 - Other nonmedicinal substance allergy status - Overexertion from strenuous movement or load, initial encounter - Personal history of nicotine dependence - Strain of muscle, fascia and tendon of lower back, initial encounter 05/18/2024 09:37 [facility] TYPE: Emergency COMPLAINT: - HIP PAIN DIAGNOSES: - Acquired absence of other specified parts of digestive tract - Allergy status to penicillin - Allergy to seafood - Other assistant pressman (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 - Other nonmedicinal substance allergy status - Pain in right hip - Personal history of nicotine dependence - Right upper quadrant pain 04/03/2024 20:02 [facility] TYPE: Emergency COMPLAINT: - ABDOMINAL PAIN DIAGNOSES: - Allergy status to other drugs, medicaments and biological substances - Allergy status to penicillin - Allergy to seafood - Other assistant pressman (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 - Personal history of nicotine dependence - Right upper quadrant pain 03/25/2024 16:16 [facility] TYPE: Emergency COMPLAINT: - ABDOMAIN PAIN DIAGNOSES: - Allergy status to other drugs, medicaments and biological substances - Allergy status to penicillin - Allergy to seafood - Epigastric pain - 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 assistant 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 (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 - Other specified abnormal uterine and vaginal bleeding - Personal history of nicotine dependence - Right upper quadrant pain 02/01/2024 09:03 [facility] TYPE: Emergency COMPLAINT: - BREAST PAIN DIAGNOSES: - Allergy status to penicillin - Allergy to seafood - Mastodynia - Other [facility] (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 - Other nonmedicinal substance allergy status - Personal history of nicotine dependence 11/14/2023 12:17 [facility] TYPE: Emergency COMPLAINT: - FLANK PAIN,VOMITING 11/12/2023 04:04 [facility] TYPE: Emergency COMPLAINT: - RT SHOULDER PAIN DIAGNOSES: - Allergy status to penicillin - Exposure to other specified factors, initial encounter - Other [facility] (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 - Pain in right [...] - Low back pain, unspecified - Other [facility] (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 - Personal history of [...] group home (current) use of antibiotics - group home (current) use of antibiotics - Obesity, unspecified - Obesity, unspecified - Other [facility] (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 - Other assistant pressman (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
[2024-08-10] MEDS ORDERED: ACETAMINOPHEN 500 MG TAB PO ONE (12:15)
[2024-08-10] MEDS ORDERED: HYDROCODON-ACE1 EA10 PO (12:53)
[2024-08-10] MEDS ORDERED: IBUPROFEN600 MG PO (12:53)
[2024-08-10 13:00] VITALS: BP 111/76
== END 2024-08-10 13:00 | disposition home or self-care (01) ==
LOC: ED 10:23
DX: M54.50 Low back pain, unspecified (principal); Z87.891 Personal history of nicotine dependence; Z91.013 Allergy to seafood; Z88.1 Allergy status to other antibiotic agents
CPT/HCPCS: 84703; 99283; A9270

== ENCOUNTER 2024-08-20 22:08 | Emergency (ER) | payer OTHER ==
[~2024-08-20] VITALS: Ht 162.6 cm; Wt 90.0 kg
[~2024-08-20 22:08] MED LIST changes: +IBUPROFEN600 MG PO
--- OUTSIDE RECORDS SUMMARY | 2024-08-20 22:15 | XMS ---
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 EDipti VISIT COUNT (12 MO.) [address] [place] [address] TOTAL 12 NOTE: Visits indicate total known visits. ED/UCC VISIT TRACKING (12 MO.) 08/20/2024 22:08 [facility] TYPE: Emergency COMPLAINT: - ABDOMINAL PAIN 08/10/2024 10:23 [facility] TYPE: Emergency COMPLAINT: - BACK/HIP INJURY/PAIN DIAGNOSES: - Allergy status to other antibiotic agents - Allergy to seafood - Low back pain, unspecified - Personal history of nicotine dependence 08/02/2024 06:02 [facility] TYPE: Emergency COMPLAINT: - COLD SYMPTOMS DIAGNOSES: - Acute pharyngitis, unspecified - Chronic sinusitis, unspecified - Personal history of nicotine dependence 06/02/2024 14:19 [facility] TYPE: Emergency COMPLAINT: - BACK INJURY DIAGNOSES: - Allergy status to penicillin - Allergy to seafood - Low back pain, unspecified - Other meterman (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 - Other nonmedicinal substance [...] penicillin - Allergy to seafood - Other meterman (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 - Other nonmedicinal substance allergy status - Pain in right hip - Personal history of nicotine dependence - Right upper quadrant pain 04/03/2024 20:02 [facility] TYPE: Emergency COMPLAINT: - ABDOMINAL PAIN DIAGNOSES: - Allergy status to other drugs, medicaments and biological substances - Allergy status to penicillin - Allergy to seafood - Other meterman (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 - Personal history of nicotine dependence - Right upper quadrant pain 03/25/2024 16:16 [facility] TYPE: Emergency COMPLAINT: - ABDOMAIN PAIN DIAGNOSES: - Allergy status to other drugs, medicaments and biological substances - Allergy status to penicillin - Allergy to seafood - Epigastric pain - Other intermediate (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 - Other specified abnormal uterine and vaginal bleeding - Personal history of nicotine dependence - Right upper quadrant pain 02/01/2024 09:03 [facility] TYPE: Emergency COMPLAINT: - BREAST PAIN DIAGNOSES: - Allergy status to penicillin - Allergy to seafood - Mastodynia - Other meterman (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 - Other nonmedicinal substance allergy status - Personal history of nicotine dependence 11/14/2023 12:17 [facility] TYPE: Emergency COMPLAINT: - FLANK PAIN,VOMITING 11/12/2023 04:04 [facility] TYPE: Emergency COMPLAINT: - RT SHOULDER PAIN DIAGNOSES: - Allergy status to penicillin - Exposure to other specified factors, initial encounter - Other meterman (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 - Pain in right [...] - Low back pain, unspecified - Other meterman (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 - Personal history of nicotine dependence - Strain of muscle, fascia and tendon of lower back, initial encounter INPATIENT VISIT TRACKING (12 MO.) 11/14/2023 15:[address] [facility] TYPE: [facility] COMPLAINT: - CHOLEDOCOLITHIASIS [...] (change of) liver, not elsewhere classified - termite helper (current) use of antibiotics - group home (current) use of antibiotics - Obesity, unspecified - Obesity, unspecified - Other intermediate (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 - Other intermediate (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 - Personal history of nicotine dependence - Personal history of nicotine dependence - Radiographic dye allergy status - Radiographic dye allergy status [email or web address]
[2024-08-20 22:24] LABS: BASOPHILS 0.3 % (0.1-1.2); EOSINOPHILS 0.6 % (0.7-5.8); HEMATOCRIT 46.8 % (34.1-44.9); LYMPHOCYTES 7.8 % (19.3-51.7); MCHC 32.1 g/dL (32.2-35.5); MCV 84.3 fL (79.4-94.8); MONOCYTES 7.1 % (4.7-12.5); NEUTROPHILS 83.8 % (34.0-71.1); PLATELET COUNT 340 K/uL (182-369); RBC 5.55 M/uL (3.93-5.22)
[2024-08-20 22:39] LABS: ALBUMIN 4.3 g/dL (3.4-5.0); ALBUMIN/GLOBULIN RATIO 0.83 (1.1-2.4); ANION GAP 12.9 (7-21); BILIRUBIN, TOTAL 2.2 mg/dL (0.2-1.0); BUN/CREATININE RATIO 9.43 (6.0-28.6); CALCIUM 9.1 mg/dL (8.5-10.1); CREATININE, SERUM 1.06 mg/dL (0.55-1.02); POTASSIUM 3.9 mmol/L (3.5-5.1); PROTEIN, TOTAL 9.5 g/dL (6.4-8.2)
[2024-08-20] MEDS ORDERED: KETOROLAC TROMETHAMINE 30 MG/ML VIAL IV ONE (23:00)
[2024-08-20] MEDS ORDERED: LACTATED RINGER'S 1,000 ML IV ONE (23:00)
[2024-08-20] MEDS ORDERED: ondansetron HCL 4 MG/2 ML VIAL IV ONE (23:00)
[2024-08-20] MEDS ORDERED: FAMOTIDINE 20 MG/ 2 ML VIAL IV ONE (23:00)
[2024-08-20 23:54] LABS: BILIRUBIN, URINE NEGATIVE (negative); BLOOD/HGB, URINE NEGATIVE (Negative); KETONE, URINE NEGATIVE (Negative); LEUK ESTERASE, URINE NEGATIVE (negative); NITRITE, URINE NEGATIVE (negative); PH, URINE 5.5 (5-7)
[2024-08-21 00:08] LABS: AMPHETAMINES, URINE NEGATIVE (NEGATIVE); BARBITURATES, URINE NEGATIVE (NEGATIVE); BENZODIAZEPINE, URINE NEGATIVE (NEGATIVE); BUPRENORPHINE, URINE NEGATIVE (NEGATIVE); CANNABINOID, URINE NEGATIVE (NEGATIVE); COCAINE, URINE NEGATIVE (NEGATIVE); ECSTASY, URINE NEGATIVE (NEGATIVE); FENTANYL, URINE NEGATIVE (NEGATIVE); METHADONE, URINE NEGATIVE (NEGATIVE); OPIATES, URINE NEGATIVE (NEGATIVE); OXYCODONE, URINE NEGATIVE (NEGATIVE); PHENCYCLIDINE, URINE NEGATIVE (NEGATIVE)
[2024-08-21] MEDS ORDERED: ONDANSETRON ODT4 MG PO (00:34)
[2024-08-21 00:45] VITALS: BP 110/92
[2024-08-21] MEDS ORDERED: ONDANSETRON 4 MG HOME.PACK SL ONE (00:45)
== END 2024-08-21 00:47 | disposition home or self-care (01) ==
LOC: ED 22:08
PROVIDERS: Internal Medicine
DX: E86.0 Dehydration (principal); R10.11 Right upper quadrant pain; R10.31 Right lower quadrant pain; Z79.899 Other long term (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; Z88.0 Allergy status to penicillin; Z91.013 Allergy to seafood; Z91.041 Radiographic dye allergy status
CPT/HCPCS: 36415; 74176; 80053; 80307; 81003; 83690; 84443; 84703; 85025; 96361; 96374; 96375; 99284-25; A9270; J1885; J2405; J7121

== ENCOUNTER 2024-09-07 13:33 | Emergency (ER) | payer OTHER ==
[~2024-09-07] VITALS: Ht 162.6 cm; Wt 90.9 kg
--- OUTSIDE RECORDS SUMMARY | 2024-09-07 13:40 | XMS ---
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 EDipti VISIT COUNT (12 MO.) [address] [place] [address] TOTAL 13 NOTE: Visits indicate total known visits. ED/UCC VISIT TRACKING (12 MO.) 09/07/2024 13:34 [facility] TYPE: Emergency COMPLAINT: - FLANK PAIN 08/20/2024 22:08 [facility] TYPE: Emergency COMPLAINT: - ABDOMINAL PAIN DIAGNOSES: - Allergy status to penicillin - Allergy to seafood - Dehydration - Other terminal carman (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 - Radiographic dye allergy status - Right lower quadrant pain - Right upper quadrant pain 08/10/2024 10:23 [facility] TYPE: Emergency [...] - Low back pain, unspecified - Other terminal carman (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 - Other nonmedicinal substance [...] penicillin - Allergy to seafood - Other fpc (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 - Other nonmedicinal substance allergy status - Pain in right hip - Personal history of nicotine dependence - Right upper quadrant pain 04/03/2024 20:02 [facility] TYPE: Emergency COMPLAINT: - ABDOMINAL PAIN DIAGNOSES: - Allergy status to other drugs, medicaments and biological substances - Allergy status to penicillin - Allergy to seafood - Other terminal carman (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 - Personal history of nicotine dependence - Right upper quadrant pain 03/25/2024 16:16 [facility] TYPE: Emergency COMPLAINT: - ABDOMAIN PAIN DIAGNOSES: - Allergy status to other drugs, medicaments and biological substances - Allergy status to penicillin - Allergy to seafood - Epigastric pain - Other fpc (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 - Other specified abnormal uterine and vaginal bleeding - Personal history of nicotine dependence - Right upper quadrant pain 02/01/2024 09:03 [facility] TYPE: Emergency COMPLAINT: - BREAST PAIN DIAGNOSES: - Allergy status to penicillin - Allergy to seafood - Mastodynia - Other fpc (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 - Other nonmedicinal substance allergy status - Personal history of nicotine dependence 11/14/2023 12:17 [facility] TYPE: Emergency COMPLAINT: - FLANK PAIN,VOMITING 11/12/2023 04:04 [facility] TYPE: Emergency COMPLAINT: - RT SHOULDER PAIN DIAGNOSES: - Allergy status to penicillin - Exposure to other specified factors, initial encounter - Other fpc (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 - Pain in right [...] - Low back pain, unspecified - Other fpc (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 - Personal history of [...] (change of) liver, not elsewhere classified - intermediate designer (current) use of antibiotics - long-term (current) use of antibiotics - Obesity, unspecified - Obesity, unspecified - Other terminal carman (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 - Other terminal carman (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 - Personal history of nicotine dependence - Personal history of nicotine dependence - Radiographic dye allergy status - Radiographic dye allergy status [email or web address]
[2024-09-07 14:06] LABS: BILIRUBIN, URINE POSITIVE (negative); BLOOD/HGB, URINE LARGE (Negative); KETONE, URINE NEGATIVE (Negative); LEUK ESTERASE, URINE NEGATIVE (negative); NITRITE, URINE POSITIVE (negative)
[2024-09-07 14:12] LABS: EPITHELIAL CELLS, URINE SQUAMOUS 1+ /lpf (0-1+)
[2024-09-07 14:13] LABS: CRYSTALS, URINE NONE SEEN (0-1+); RED BLOOD CELLS, URINE >50 /hpf (0-5)
[2024-09-07 14:14] LABS: BACTERIA, URINE RARE /hpf (negative); CASTS, URINE NONE SEEN \\lpf; COLLECTION TYPE, URINE CLEAN CATCH; REFLEX CULTURE, URINE Yes (No)
[2024-09-07] MEDS ORDERED: CEPHALEXIN MONOHYDRATE 500 MG CAP PO ONE (14:45)
[2024-09-07] MEDS ORDERED: CEPHALEXIN500 MG PO (14:46)
[2024-09-07 14:53] VITALS: BP 120/60
== END 2024-09-07 14:55 | disposition home or self-care (01) ==
LOC: ED 13:33
PROVIDERS: Emergency Medicine
DX: N39.0 Urinary tract infection, site not specified (principal); R31.9 Hematuria, unspecified; Z87.891 Personal history of nicotine dependence; Z91.013 Allergy to seafood; Z88.1 Allergy status to other antibiotic agents
CPT/HCPCS: 81001; 84703; 87077; 87088; 99284; A9270

== ENCOUNTER 2024-10-05 21:06 | Emergency (ER) | payer OTHER ==
[~2024-10-05] VITALS: Ht 162.6 cm; Wt 90.2 kg
[~2024-10-05 21:06] MED LIST changes: +CEPHALEXIN500 MG PO
--- OUTSIDE RECORDS SUMMARY | 2024-10-05 21:29 | XMS ---
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/Center: [facility] Current FAMILY PHONE: [phone] ZULLY SOLOMON [facility] Current PHONE: Unknown Olivier has no Care Guidelines for this patient. EDipti VISIT COUNT (12 MO.) [address] [place] [address] TOTAL 13 NOTE: Visits indicate total known visits. ED/UCC VISIT TRACKING (12 MO.) 10/05/2024 21:23 [facility] TYPE: Emergency COMPLAINT: - ABDOMINAL PAIN 09/07/2024 13:34 [facility] TYPE: Emergency COMPLAINT: - FLANK PAIN DIAGNOSES: - Allergy status to other antibiotic agents - Allergy to seafood - Hematuria, unspecified - Personal history of nicotine dependence - Urinary tract infection, site not specified 08/20/2024 22:08 [facility] [place] TYPE: Emergency COMPLAINT: - ABDOMINAL PAIN DIAGNOSES: - Allergy status to penicillin - Allergy to seafood - Dehydration - Other senior living (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 - Radiographic dye allergy status - Right lower quadrant pain - Right upper quadrant pain 08/10/2024 10:23 [facility] TYPE: Emergency COMPLAINT: - BACK/HIP INJURY/PAIN DIAGNOSES: - Allergy status to other antibiotic agents - Allergy to seafood - Low back pain, unspecified - Personal history of nicotine dependence 08/02/2024 06:02 [facility] [place] TYPE: Emergency COMPLAINT: - COLD SYMPTOMS DIAGNOSES: - Acute pharyngitis, unspecified - Chronic sinusitis, unspecified - Personal history of nicotine dependence 06/02/2024 14:19 [facility]tho HR[facility]ida [facility] [place] TYPE: Emergency COMPLAINT: - BACK INJURY DIAGNOSES: - Allergy status to penicillin - Allergy to seafood - Low back pain, unspecified - Other technician terminal and repeater (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 - Other nonmedicinal substance [...] penicillin - Allergy to seafood - Other senior living (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 - Other nonmedicinal substance allergy status - Pain in right hip - Personal history of nicotine dependence - Right upper quadrant pain 04/03/2024 20:02 [facility] TYPE: Emergency COMPLAINT: - ABDOMINAL PAIN DIAGNOSES: - Allergy status to other drugs, medicaments and biological substances - Allergy status to penicillin - Allergy to seafood - Other technician terminal and repeater (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 - Personal history of nicotine dependence - Right upper quadrant pain 03/25/2024 16:16 [facility] TYPE: Emergency COMPLAINT: - ABDOMAIN PAIN DIAGNOSES: - Allergy status to other drugs, medicaments and biological substances - Allergy status to penicillin - Allergy to seafood - Epigastric pain - Other senior living (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 - Other specified abnormal uterine and vaginal bleeding - Personal history of nicotine dependence - Right upper quadrant pain 02/01/2024 09:03 [facility] TYPE: Emergency COMPLAINT: - BREAST PAIN DIAGNOSES: - Allergy status to penicillin - Allergy to seafood - Mastodynia - Other technician terminal and repeater (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 - Other nonmedicinal substance allergy status - Personal history of nicotine dependence 11/14/2023 12:17 [facility] TYPE: Emergency COMPLAINT: - FLANK PAIN,VOMITING 11/12/2023 04:04 [facility] TYPE: Emergency COMPLAINT: - RT SHOULDER PAIN DIAGNOSES: - Allergy status to penicillin - Exposure to other specified factors, initial encounter - Other technician terminal and repeater (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 - Pain in right [...] spine - Personal history of nicotine dependence INPATIENT VISIT TRACKING (12 MO.) 11/14/2023 15:06 [...] (change of) liver, not elsewhere classified - senior care (current) use of antibiotics - senior care (current) use of antibiotics - Obesity, unspecified - Obesity, unspecified - Other senior living (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 - Other senior living (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 - Personal history of nicotine dependence - Personal history of nicotine dependence - Radiographic dye allergy status - Radiographic dye allergy status [email or web address]
[2024-10-05 21:39] LABS: BASOPHILS 0.5 % (0.1-1.2); EOSINOPHILS 0.9 % (0.7-5.8); LYMPHOCYTES 22.1 % (19.3-51.7); MCH 27.9 PG (25.6-32.2); MCHC 32.9 g/dL (32.2-35.5); MCV 84.8 fL (79.4-94.8); MONOCYTES 5.6 % (4.7-12.5); NEUTROPHILS 70.5 % (34.0-71.1); RBC 4.87 M/uL (3.93-5.22)
[2024-10-05 21:56] LABS: ALT (SGPT) 22.0 U/L (14-59); AST (SGOT) 12.0 U/L (15-37); GLOMERULAR FILTRATION RATE,EST 120.0 mL/min (>60); PROTEIN, TOTAL 8.3 g/dL (6.4-8.2); UREA NITROGEN 8.0 mg/dL (7-18)
[2024-10-05 22:02] LABS: BLOOD/HGB, URINE NEGATIVE (Negative); KETONE, URINE NEGATIVE (Negative); LEUK ESTERASE, URINE NEGATIVE (negative); NITRITE, URINE NEGATIVE (negative)
[2024-10-05] MEDS ORDERED: LACTATED RINGER'S 1,000 ML IV ONE (23:15)
[2024-10-05] MEDS ORDERED: FAMOTIDINE 20 MG/ 2 ML VIAL IV ONE (23:15)
[2024-10-06 00:50] VITALS: BP 120/60
== END 2024-10-06 00:47 | disposition left against medical advice (07) ==
LOC: ED 21:06
PROVIDERS: Internal Medicine
DX: O99.891 Other specified diseases and conditions complicating pregnancy (principal); R10.9 Unspecified abdominal pain; Z3A.01 Less than 8 weeks gestation of pregnancy
CPT/HCPCS: 36415; 76801; 76817; 80053; 81003; 83690; 84702; 84703; 85025; 96374; 96375; 99284-25; J2405; J7121